=== PATIENT | male | born 1950 | race Caucasian/White ===

== ENCOUNTER 2021-07-04 15:23 | Emergency (ER) | payer MEDICARE, MEDICAID, SELFPAY ==
--- NOTE | ~2021-07-04 | CT_ITS ---
EXAMINATION: CT abdomen pelvis w con DATE: 07/04/2021 19:11 INDICATION: Bilateral flank pain. TECHNIQUE: Computed tomography (CT) of the abdomen and pelvis was performed with 100 mL Omnipaque-350 intravenous contrast. Automated exposure control and iterative reconstruction technique were employe d. The dose-length product was 733.00 mGy-cm. COMPARISON: None FINDINGS: 4 mm pleural-based nodule in the right lower lobe. 5 mm subpleural nodule at the lingula. Heart size is normal. Atherosclerotic coronary artery calcification. Aortic valve calcification. No pericardial or pleural effusion. Small sliding-type hiatal hernia. There are small thickening at the gastric antr um without surrounding inflammatory stranding. Liver, gallbladder, spleen, pancreas and bilateral adr enal glands are normal. Bilateral renal cysts measuring 4 mm on the right and 1.6 cm on the left. No evident urolithiasis or hydronephrosis. Bilateral ureters and bladder are normal. Prostatomegaly. The re are a few scattered diverticula predominantly along the sigmoid colon without adjacent from 3 mak ge to suggest diverticular colitis. Small bowel and appendix are normal. No free intraperitoneal gas or fluid. No pathologically enlarged abdominal or pelvic lymphadenopathy. Moderate thoracic spondylos is. Anterior and posterior spinal fusion at L3-L4. Chronic T12 compression fracture. IMPRESSION: 1. Possible wall thickening at the gastric antrum with differential including focal gastritis, peptic ulcer disease or artifactual appearance due to peristalsis. No other acute intra-abdominal/pelvic pr ocess. 2. Small sliding-type hiatal hernia. 3. Prostatomegaly. 4. 5 mm lingular nodule and 4 mm right lower lobe nodule. If the patient is low risk for lung cancer, no follow-up is needed. If the patient is high risk (i.e., history of smoking or asbestos or signifi cant radiation exposure), optional follow-up chest CT could be considered at 12 months. Reviewed, dictated and finalized at location A. IMPRESSION: 1. Possible wall thickening at the gastric antrum with differential including f ocal gastritis, peptic ulcer disease or artifactual appearance due to peristals is. No other acute intra-abdominal/pelvic process. 2. Small sliding-type hiatal hernia. 3. Prostatomegaly. 4. 5 mm lingular nodule and 4 mm right lower lobe nodule. If the patient is low risk for lung cancer, no follow-up is needed. If the patient is high risk (i.e ., history of smoking or asbestos or significant radiation exposure), optional follow-up chest CT could be considered at 12 months.
--- NOTE | ~2021-07-04 | XR_ITS ---
EXAMINATION: XR chest 2V DATE: 07/04/2021 16:04 INDICATION: 3 days of shortness of breath TECHNIQUE: PA and lateral views of the chest were obtained. COMPARISON: None FINDINGS: Mild linear opacities at the lingula. No pulmonary edema, pleural effusion or pneumothorax. The cardi omediastinal silhouette is normal. Moderate thoracic spondylosis. IMPRESSION: 1. Mild linear opacities at the lingula and favor atelectasis over pneumonia. Reviewed, dictated and finalized at location A.
--- NOTE | 2021-07-04 15:26 | ECG_ITS ---
Measurements Intervals Wheeler Rate: 70 P: 32 MN: 166 QRS: -18 QRSD: 103 T: 47 QT: 362 QTc: 393 Interpretive Statements SINUS RHYTHM EARLY PRECORDIAL R/S TRANSITION BASELINE ARTIFACT- III BORDERLINE ECG Electronically Signed On 07-04-2021 20:04:08 CDT by Evelio Faustin D.O.
[2021-07-04 15:36] VITALS: BP 152/86; PULSE 79; RESP 18; TEMP 36.6; O2SAT 96
[2021-07-04 15:51] LABS: Basophils Percent Auto 0.3 % (0.2-1.2); Eosinophils Absolute Auto 0.1 K/mm3 (0-0.3); Eosinophils Percent Auto 2.2 % (0-4.4); Hematocrit 39.4 % (42.0-52.0); Hemoglobin 13.1 g/dL (14.0-18.0); Immature Granulocyte Absolute 0.02 K/mm3 (0.00-0.031); Immature Granulocyte Percent A 0.3 % (0-0.5); Lymphocytes Absolute Auto 1.89 K/mm3 (0.9-3.2); Lymphocytes Percent Auto 31.8 % (18.3-44.2); Mean Corpuscular HGB Conc 33.2 g/dl (32-36); Mean Corpuscular Hemoglobin 29.8 pg (26-34); Mean Corpuscular Volume 89.7 fl (80-100); Mean Platelet Volume 9.4 fl (7.4-10.4); Monocytes Absolute Auto 0.5 K/mm3 (0.1-0.6); Monocytes Percent Auto 8.9 % (2.6-8.5); Neutrophils Absolute Auto 3.4 K/mm3 (1.3-6.7); Neutrophils Percent Auto 56.5 % (45.5-73.1); Platelet Count Result 220 k/mm3 (150-375); Red Blood Count 4.39 M/mm3 (4.6-6.20); Red Cell Distribution Width 13.1 % (11.5-14.5); White Blood Count 5.9 K/mm3 (4.5-10.0)
[2021-07-04 15:59] LABS: Anion Gap 6 mmol/L (8-16); Blood Urea Nitrogen 22 mg/dL (9-20); Calcium 8.9 mg/dL (8.4-10.2); Carbon Dioxide 24 mmol/L (22-30); Chloride 109 mmol/L (98-107); Estimated CRCL calculation 55 ml/min; Estimated Glomerular Filt Rate > 60; Glucose 142 mg/dL (65-110); Potassium 4.1 mmol/L (3.4-5.0); Sodium 139 mmol/L (137-145)
[2021-07-04 17:13] LABS: Base Excess ABG 0.1 mEq/l (+/-2.0); Fractional Inspired Oxygen 21 %; HCO3 ABG 24.3 mEq/l (22.0-26.0); Oxygen Content ABG 18.5 %vol (16.0-22.0); Oxygen Saturation ABG 95.6 % (95.0-100.0); PCO2 ABG 38.1 mmHg (35.0-45.0); PO2 ABG 76.1 mmHg (80.0-100.0); PO2 FiO2 Ratio Arterial Blood 3.62 %; pH ABG 7.423 (7.350-7.450)
[2021-07-04 17:41] VITALS: BP 150/77; PULSE 68; RESP 20; O2SAT 97
[2021-07-04 18:01] LABS: INR 0.9; Prothrombin Time 11.9 Seconds (11.1-14.7)
[2021-07-04 18:02] LABS: Partial Thromboplastin Time 24.3 SECONDS (22.3-36.8)
[2021-07-04 18:04] LABS: D Dimer 0.39 ug/mL (<0.48)
[2021-07-04 18:05] LABS: Alanine Aminotransferase 33 U/L (4-50); Alkaline Phosphatase 47 U/L (38-126); Aspartate Amino Transferase 33 U/L (17-59); Bilirubin,Total 0.4 mg/dL (0.2-1.3)
[2021-07-04 18:16] LABS: NT Pro B Type Natriuretic Pept 45 pg/mL (5-100); Troponin I < 0.012 ng/mL (0.000-0.034)
[2021-07-04 18:19] LABS: Erythrocyte Sedimentation Rate 9 mm/hr (0-20)
--- NOTE | 2021-07-04 18:20 | ED.GENADULT ---
HPI - General Adult General Chief complaint: Shortness of Breath/Dyspnea <Yadira Huizar MD - Last Filed: 07/04/21 19:10> Stated complaint: short of breath <Yadira Huizar MD - Last Filed: 07/04/21 19:10> Time Seen by Provider: 07/04/21 16:40 <Yadira Huizar MD - Last Filed: 07/04/21 19:10> Source: patient and RN notes reviewed <Yadira Huizar MD - Last Filed: 07/04/21 19:10> Mode of arrival: ambulatory <Yadira Huizar MD - Last Filed: 07/04/21 19:10> Limitations: no limitations <Yadira Huizar MD - Last Filed: 07/04/21 19:10> History of Present Illness HPI narrative: Patient is 71 years old white male drove himself to the emergency room because of pain at the flank area bilaterally radiating all the way to the chest anteriorly, dull aching, worse with any movement, better sitting up or laying down. Started 3 weeks ago. Was seen by his family physician who started him on inhaler and baclofen. Patient is telling me that his symptoms are getting worse. Patient denies any fever, chills, nausea, vomiting. Patient is fully vaccinated for COVID-19. History of hypertension, diabetes, hyperlipidemia, benign prostatic hypertrophy. Patient does not smoke or drink or uses drugs, quit smoking 2 years ago. <Yadira Huizar MD - Last Filed: 07/04/21 19:10> Related Data Allergies/adverse reactions: Allergies Allergy/AdvReac Type Severity Reaction Status Date / Time No Known Allergies Allergy Verified 07/04/21 17:41 <Yadira Huizar MD - Last Filed: 07/04/21 19:10> Review of Systems Review of Systems: CONSTITUTIONAL: Denies fever, chills, or sweats. EYES: Denies visual changes, redness, or discharge. ENT: Denies rhinorrhea, congestion, sore throat, or otalgia. CARDIOVASCULAR: Denies chest pain, palpitations, or edema. RESPIRATORY: Denies cough or dyspnea. GASTROINTESTINAL: Denies abdominal pain, nausea, vomiting, or diarrhea. GENITOURINARY: Denies dysuria or hematuria. SKIN: Denies rash or itching. MUSCULOSKELETAL: Denies back pain, joint pain, or myalgia. NEUROLOGIC: Denies headache, numbness, or weakness. PSYCHIATRIC: Denies anxiety or depression. <Yadira Huizar MD - Last Filed: 07/04/21 19:10> Exam Narrative: General appearance: Well-developed, well-nourished Skin: Normal color Head: Normocephalic, nontraumatic Eyes: Clear conjunctiva ENT: Oropharynx normal, ears normal, nose normal Neck: Supple, nontender Chest and respiratory: Airway patent, no respiratory distress, no accessory muscle use Heart: Regular rate/rhythm Abdomen: Soft, nontender, no organomegaly, quiet bowel sounds Vascular: Normal peripheral pulses, normal capillary refill. Musculoskeletal: Normal range of motion, mild diffuse tenderness of the flank area bilaterally, no bruises, no rash or swelling. Neurologic: Alert and oriented ?3, GAME AGENT is normal as tested, no gross motor deficit <Yadira Huizar MD - Last Filed: 07/04/21 19:10> Course Course Emergency Course: Stable <Yadira Huizar MD - Last Filed: 07/04/21 19:10> Vital Signs Vital signs: Vital Signs Temperature 36.6 C 07/04/21 15:36 Pulse Rate 79 07/04/21 15:36 Respiratory Rate 18 07/04/21 15:36 Blood Pressure 152/86 H 07/04/21 15:36 Pulse Oximetry 96 07/04/21 15:36 Temperature 36.6 C 07/04/21 15:36 Pulse Rate 66 07/04/21 19:21 Respiratory Rate 14 07/04/21 19:21 Blood Pressure 161/93 H 07/04/21 19:21 Pulse Oximetry 98 07/04/21 19:21 <Yadira Huizar MD - Last Filed: 07/04/21 19:10> Vital Signs Temperature 36.6 C 07/04/21 15:36 Pulse Rate 79 07/04/21 15:36 Respiratory Rate 18 07/04/21 15:36 Blood Pressure 15
[2021-07-04 18:46] VITALS: BP 110/86; PULSE 64; RESP 20; O2SAT 96
[2021-07-04 19:17] LABS: Device ROOM AIR; Modified Allen's Test Pass; Site Drawn RIGHT RADIAL
[2021-07-04 19:21] VITALS: BP 161/93; PULSE 66; RESP 14; O2SAT 98
[2021-07-04 20:16] LABS: Troponin I < 0.012 ng/mL (0.000-0.034)
[2021-07-04 20:23] VITALS: BP 164/89; PULSE 72; RESP 16; O2SAT 100
== END 2021-07-04 20:24 | disposition home or self-care (01) ==
PROVIDERS: Emergency Provider Emergency Medicine
DX: M54.9 Dorsalgia, unspecified (principal); K29.00 Acute gastritis without bleeding; I10 Essential (primary) hypertension; E11.9 Type 2 diabetes mellitus without complications; E78.5 Hyperlipidemia, unspecified; N40.0 Benign prostatic hyperplasia without lower urinary tract symptoms; Z87.891 Personal history of nicotine dependence; R06.02 Shortness of breath
CPT/HCPCS: 36415; 36600; 71046; 74177; 80048; 80076; 82805; 83880; 84484; 85025; 85380; 85610; 85652; 85730; 93005; 99284; Q9967

== ENCOUNTER → 2024-01-10 10:42 | Outpatient (CLI) | payer MEDICARE, MEDICAID, SELFPAY ==
--- NOTE | ~2024-01-10 | XR_ITS ---
Clinical Indication: Cough PA and lateral views of the chest: Comparison: 07/04/2021 Findings: The lungs are clear, without evidence of focal consolidation or pleural effusion. Cardiome diastinal silhouette is within normal limits. Bones and soft tissues are unremarkable. Impression: Normal chest. Reviewed, dictated and finalized at [facility]. CIATE DIRECTOR FINANCIAL AID Impression: Normal chest.
== END ==
PROVIDERS: PCP Emergency Medicine; Visit Provider Emergency Medicine
DX: R06.02 Shortness of breath (principal); R05.9 Cough, unspecified
CPT/HCPCS: 71046

== ENCOUNTER 2024-01-27 13:16 | Emergency (ER) | payer MEDICARE, MEDICAID, SELFPAY ==
--- NOTE | 2024-01-27 13:21 | ED.SKABFB ---
HPI - Skin/Abscess/Foreign Bdy General Chief complaint: Skin/Abscess/Foreign Body Stated complaint: top of right foot wound Time Seen by Provider: 01/27/24 13:30 Source: patient Mode of arrival: ambulatory Limitations: no limitations History of Present Illness HPI narrative: Tanya is a 73-year-old male patient presenting to the clinic today with complaints of a infected wound to the top of his right foot. He reports that he 1st noticed this wound 3 days ago. Is red with a pustular blister to the center of it. Area measures 5 x 3 cm. Right foot is swollen when compared to the left foot. Patient is diabetic. Related Data Home Medications Medication Instructions Recorded Confirmed aspirin 325 mg tablet,delayed 325 mg PO DAILY 01/27/24 01/27/24 release dutasteride 0.5 mg capsule 0.5 mg PO DAILY 01/27/24 01/27/24 ergocalciferol (vitamin D2) 1,250 1,250 mcg PO WEEKLY 01/27/24 01/27/24 mcg (50,000 unit) capsule fluticasone fur. 100 mcg-umeclid 1 inh inhalation DAILY 01/27/24 01/27/24 62.5 mcg-vilant 25 mcg inhalat.powder (Trelegy Ellipta) metformin 500 mg tablet 500 mg PO BID 01/27/24 01/27/24 metoprolol succinate 25 mg 25 mg PO DAILY 01/27/24 01/27/24 tablet,extended release 24 hr rosuvastatin 20 mg tablet 20 mg PO DAILY 01/27/24 01/27/24 tamsulosin 0.4 mg capsule 0.4 mg PO DAILY 01/27/24 01/27/24 Allergies Allergy/AdvReac Type Severity Reaction Status Date / Time No Known Allergies Allergy Verified 01/27/24 13:34 Review of Systems Review of Systems: Pertinent positives per HPI. Patient denies any fever, chills, rash, headache, visual changes, dizziness, cough, runny nose, sore throat, shortness of breath, chest pain, palpitations, nausea, vomiting, diarrhea, constipation, abdominal pain, or any urinary issues. [facility] Family History Family History Father Family history of premature coronary heart disease Patient's father is Social History Social History Smoking status: Current every day smoker Smoking end date: 11/21/14 Alcohol intake: never Comments At the time of my signature, I reviewed and agree with the nursing past medical, surgical, social, and family history. There is no relevant family history pertinent to the patient complaint. Exam Narrative: General: Well-developed, well nourished, in no apparent distress Head: Normocephalic, atraumatic. Cardio: Regular rate and rhythm, s1 and s2 normal, no murmur appreciated. Resp: Clear to auscultation bilaterally, no rhonchi, rales, wheezing or rubs. Integumentary: Hume, warm, and dry, infected blister to the top of the right foot with redness measuring 5 x 3 cm with mild induration. 1+ pitting edema to the right foot when compared to the left foot. No redness or streaking going up the ankle or leg Course Course Emergency Course: Portions of this record may have been created with voice recognition software. Level of Care: Express Care Visit Vital Signs Vital signs: Vital signs reviewed Procedures Abscess I/D foot: Date of Incision: 01/27/24 Side (if applicable): right Technique: other (Incised with an 18 gauge needle) Amount of fluid expressed (mL): 0.25 Irrigation: No Packing used?: none I&D Results: Pus and Blood MDM - Skin/Abscess/Foreign Bdy MDM Narrative Medical decision making narrative: At the time of visit patient is resting comfortably on the exam table. Patient appears to be nontoxic. Plan: Patient denies any fever or chills. Wound was cleansed with antiseptic soap and opened using an 18 gauge needle. Wound culture was obtained and sent to the lab. Will place the patient on mupirocin cream and clindamycin. Supportive measures were discussed with the patient and they voiced understanding discharge instructions and agrees
[2024-01-27 13:28] VITALS: BP 128/70; PULSE 69; RESP 16; TEMP 36.6; O2SAT 97
== END 2024-01-27 13:52 | disposition home or self-care (01) ==
PROVIDERS: Emergency Provider Nurse Practitioner Family; PCP Emergency Medicine
DX: L08.89 Other specified local infections of the skin and subcutaneous tissue (principal); B96.89 Other specified bacterial agents as the cause of diseases classified elsewhere; F17.200 Nicotine dependence, unspecified, uncomplicated; Z79.82 Long term (current) use of aspirin; Z79.84 Long term (current) use of oral hypoglycemic drugs; Z79.899 Other long term (current) drug therapy
CPT/HCPCS: 87070; 87075; 87147; 87181; 87205; 99213; G0463

== ENCOUNTER 2024-02-02 11:43 | Outpatient (CLI) | payer MEDICARE, MEDICAID, SELFPAY ==
[2024-02-02 12:05] LABS: Basophils Percent Auto 0.7 % (0.2-1.2); Eosinophils Absolute Auto 0.2 K/mm3 (0-0.3); Eosinophils Percent Auto 2.9 % (0-4.4); Hematocrit 29.4 % (42.0-52.0); Hemoglobin 8.5 g/dL (14.0-18.0); Immature Granulocyte Absolute 0.07 K/mm3 (0.00-0.031); Immature Granulocyte Percent A 1.2 % (0-0.5); Lymphocytes Absolute Auto 1.48 K/mm3 (0.9-3.2); Lymphocytes Percent Auto 25.3 % (18.3-44.2); Mean Corpuscular HGB Conc 28.9 g/dl (32-36); Mean Corpuscular Hemoglobin 20.6 pg (26-34); Mean Corpuscular Volume 71.2 fl (80-100); Mean Platelet Volume 8.6 fl (7.4-10.4); Monocytes Absolute Auto 0.5 K/mm3 (0.1-0.6); Monocytes Percent Auto 7.7 % (2.6-8.5); Neutrophils Absolute Auto 3.7 K/mm3 (1.3-6.7); Neutrophils Percent Auto 62.2 % (45.5-73.1); Platelet Count Result 422 k/mm3 (150-375); Red Blood Count 4.13 M/mm3 (4.6-6.20); Red Cell Distribution Width 17.9 % (11.5-14.5); White Blood Count 5.9 K/mm3 (4.5-10.0)
[2024-02-02 12:09] LABS: Platelet Estimate Increased (Adequate); Schistocytes None Seen
[2024-02-02 12:10] LABS: Anisocytosis 1+; Microcytosis 1+ (NORMAL); Ovalocytes 1+; Poikilocytosis 1+
[2024-02-02 16:19] LABS: Iron 50 ug/dL (49-181)
[2024-02-02 16:30] LABS: Percent Iron Saturation 11 % (20-50)
[2024-02-02 16:56] LABS: Ferritin 8.62 ng/mL (11.1-264)
[2024-02-02 17:53] LABS: Alanine Aminotransferase 22 U/L (6-50); Albumin Level 4.1 g/dL (3.5-5.1); Alkaline Phosphatase 55 U/L (38-126); Anion Gap 10 mmol/L (8-16); Aspartate Amino Transferase 26 U/L (17-59); Bilirubin,Total 0.3 mg/dL (0.2-1.3); Blood Urea Nitrogen 26 mg/dL (9-20); Carbon Dioxide 18 mmol/L (22-30); Chloride 111 mmol/L (98-107); Estimated Glomerular Filt Rate 54; Glucose 138 mg/dL (65-110); Lactate Dehydrogenase 200 U/L (120-246); Potassium 4.5 mmol/L (3.4-5.0); Sodium 139 mmol/L (137-145)
[2024-02-02 18:59] LABS: Folic Acid 8.7 ng/mL (2.76->20)
[2024-02-06 07:46] LABS: Methylmalonic Acid 97 nmol/L (87-318)
[2024-02-11 10:56] LABS: Soluble Transferrin Receptor 5.26 mg/L (0.76-1.76)
== END 2024-02-02 11:44 | disposition home or self-care (01) ==
LOC: ANHLAB 11:46
PROVIDERS: Nurse Practitioner Family; PCP Emergency Medicine; Visit Provider Internal Medicine Hematology & Oncology
DX: D50.9 Iron deficiency anemia, unspecified (principal)
CPT/HCPCS: 36415; 80053; 82607; 82728; 82746; 83540; 83550; 83615; 83921; 84238; 85025

== ENCOUNTER 2024-05-16 08:18 | Outpatient (CLI) | payer MEDICARE, MEDICAID, SELFPAY ==
[2024-05-16 08:43] LABS: Basophils Percent Auto 0.5 % (0.2-1.2); Eosinophils Absolute Auto 0.2 K/mm3 (0-0.3); Eosinophils Percent Auto 3.6 % (0-4.4); Hematocrit 41.4 % (42.0-52.0); Hemoglobin 14.1 g/dL (14.0-18.0); Immature Granulocyte Absolute 0.02 K/mm3 (0.00-0.031); Immature Granulocyte Percent A 0.4 % (0-0.5); Lymphocytes Absolute Auto 1.35 K/mm3 (0.9-3.2); Lymphocytes Percent Auto 24.3 % (18.3-44.2); Mean Corpuscular HGB Conc 34.1 g/dl (32-36); Monocytes Absolute Auto 0.6 K/mm3 (0.1-0.6); Monocytes Percent Auto 11.4 % (2.6-8.5); Neutrophils Absolute Auto 3.3 K/mm3 (1.3-6.7); Neutrophils Percent Auto 59.8 % (45.5-73.1); Platelet Count Result 189 k/mm3 (150-375); Red Blood Count 4.87 M/mm3 (4.6-6.20); Red Cell Distribution Width 14.6 % (11.5-14.5); White Blood Count 5.6 K/mm3 (4.5-10.0)
[2024-05-16 13:14] LABS: Iron 81 ug/dL (49-181)
[2024-05-16 13:15] LABS: Alanine Aminotransferase 26 U/L (6-50); Alkaline Phosphatase 51 U/L (38-126); Anion Gap 6 mmol/L (4-12); Aspartate Amino Transferase 23 U/L (17-59); Bilirubin,Total 0.5 mg/dL (0.2-1.3); Blood Urea Nitrogen 31 mg/dL (9-20); Calcium 8.7 mg/dL (8.4-10.2); Carbon Dioxide 27 mmol/L (22-30); Chloride 105 mmol/L (98-107); Estimated Glomerular Filt Rate 59; Glucose 138 mg/dL (65-110); Potassium 4.3 mmol/L (3.4-5.0); Sodium 138 mmol/L (137-145)
[2024-05-16 13:23] LABS: Percent Iron Saturation 22 % (20-50)
[2024-05-16 14:21] LABS: Folic Acid 6.9 ng/mL (2.76->20)
== END 2024-05-16 08:19 | disposition home or self-care (01) ==
LOC: ANHLAB 08:21
PROVIDERS: Nurse Practitioner Family; PCP Emergency Medicine; Visit Provider Internal Medicine Hematology & Oncology
DX: D50.9 Iron deficiency anemia, unspecified (principal)
CPT/HCPCS: 36415; 80053; 82607; 82728; 82746; 83540; 83550; 85025

== ENCOUNTER 2025-01-03 14:48 | Emergency (ER) | payer MEDICARE, MEDICAID, SELFPAY ==
--- NOTE | ~2025-01-03 | US_ITS ---
EXAMINATION: US venous doppler LE RT DATE: 01/03/2025 15:29 INDICATION: Right lower limb pain. TECHNIQUE: Grayscale ultrasound images without and with compression and Doppler ultrasound images of the right lower extremity veins were obtained. COMPARISON: None. FINDINGS: The visualized portions of right common femoral vein, profunda (deep) femoral vein, femoral vein, pop liteal vein, peroneal veins, posterior tibial veins, and greater saphenous vein outflow are patent. IMPRESSION: 1. No deep venous thrombosis. Reviewed, dictated and finalized at location A. SPRINKLER INSPECTOR
--- OUTSIDE RECORDS SUMMARY | 2025-01-03 14:51 | XMS_ITS | Referral Summary ---
Author Organization [facility] Address [address] [place] [address] Care Team Providers Care Print Project Manager Name Role Phone Unavailable Primary Care Provider Unavailabl e Source Comments [facility],non-owned Affiliates and Associated Physician Practices is amultiple site organization consisting of ambulatory clinics and hospital sitesin [place], [place], [place] and [place]. This disclosure is being madepursuant to the Care Everywhere program and may not contain all information available regarding this patient. Last updated 18.[facility] Encounters Date Type Department Care Team Description 11/19/2024 11:30 AM HIGH FREQUENCY MILL OPERATOR Office Visit [facility] - Urology [address] [place] [address] [address] [place] [address] Stefania Abdul, POST FORM REMOVER-RATE ENGINEER Nocturia (Primary Dx); Benign prostatic hyperplasia with incomplete bladder emptying; Urinary frequency from Last 3 Months Allergies No known active allergies Medications * Be aware that medications may not be up to date on this document. Alwaysverify current medications with the patient. Medication Sig Dispensed Refills Start Date End Date Status metFORMIN (Glucophage) 500 MG tablet Take 1 (one) tablet by mouth 2 times daily Active tamsulosin (Flomax) 0.4 MG capsule Take 1 (one) capsule by mouth once daily Active dutasteride (Avodart) 0.5 MG capsule Take 1 (one) capsule by mouth once daily Active rosuvastatin (Crestor) 20 MG tablet Take 1 (one) tablet by mouth once daily Active metoprolol succinate XL 24hr (Toprol XL) 100 MG tablet Take 1 (one) tablet by mouth once daily Active aspirin EC (Ecotrin) 325 MG tablet Take 1 (one) tablet by mouth once daily Active baclofen (Lioresal) 20 MG tablet Take 1 (one) tablet by mouth 2 times daily Active omeprazole (PriLOSEC) 40 MG capsule Take 1 (one) capsule by mouth once daily Active solifenacin (Vesicare) 5 MG tablet Take 1 (one) tablet by mouth once daily 90 tablet 4 11/19/2024 Active Social History Tobacco Use Types Packs/Day Years Used Date Smoking Tobacco: Never Smokeless Tobacco: Never Tobacco Cessation:Counseling Given: Not Answered Alcohol Use Standard Drinks/Week Comments Never 0 (1 standard drink = 0.6 oz pur e alcohol) Sex and Gender Information Value Date Recorded Sex Assigned at Not on file Gender Identity Not on file Sexual Orientation Not on file Last Filed Vital Signs Vital Sign Reading Time Taken Comments Blood Pressure 137/74 11/19/2024 11:13 AM HIGH FREQUENCY MILL OPERATOR Pulse 69 11/19/2024 11:13 AM HIGH FREQUENCY MILL OPERATOR Temperature 36.8 C (98.2 F) 11/19/2024 11:13 AM HIGH FREQUENCY MILL OPERATOR Respiratory Rate 16 08/13/2024 2:59 PM CDT Oxygen Saturation 97% 11/19/2024 11: 13 AM HIGH FREQUENCY MILL OPERATOR Inhaled Oxygen Concentration - - Weight 88.8 kg (195 lb 12.8 oz) 024 11:13 AM HIGH FREQUENCY MILL OPERATOR Height 167.6 cm (5' 6 ) 11/19/2024 11:1 3 AM HIGH FREQUENCY MILL OPERATOR Body Mass Index 31.6 11/19/2024 11:13 AM HIGH FREQUENCY MILL OPERATOR Plan of Treatment Upcoming Encounters Date Type Department Care Team (Late st Contact Info) Description 02/18/2025 10:30 AM CDT Office Visit [facility] - Urology [address] [place] [address] [address] [place] [address] Stefania Abdul T, POST FORM REMOVER-RATE ENGINEER [address] [facility] DE[place] [address]
--- OUTSIDE RECORDS SUMMARY | 2025-01-03 14:51 | XMS_ITS | Referral Summary ---
Author Organization [facility] Address [address] [place] [address] Care Team Providers Care Adjuster Arbitrator Name Role Phone Eusebio Crystal MD Primary Care Provider [phone] Encounters Date Type Department Care Team Description 12/19/2024 9:15 AM PAPER PRODUCTS SUPERVISOR Office Visit [facility] Pulmonary [address] [place] [phone] Jd Ariza MD PERRY (obstructive sleep apnea) (Primary Dx); Psychophysiological insomnia; Simple chronic bronchitis (HCC); Cigarette nicotine dependence in remission; Multiple pulmonary nodules; BMI 31.0-31.9,adult; Periodic limb movement 11/16/2024 [address]phone [facility] [address] [place] [address] Jd Ariza MD Cpap titration results 11/11/2024 7:49 PM PAPER PRODUCTS SUPERVISOR - 11/11/2024 11:59 PM PAPER PRODUCTS SUPERVISOR Hospital Encounter [facility] [address] [place] [address] Other fatigue; PERRY (obstructive sleep apnea); Psychophysiological insomnia; Wheezing; Simple chronic bronchitis (HCC); BMI 31.0-31.9,adult; Cigarette nicotine dependence in remission Discharge Disposition: Discharge to home or self care 11/05/2024 9:15 AM PAPER PRODUCTS SUPERVISOR - 11/05/2024 11:59 PM PAPER PRODUCTS SUPERVISOR [facility] [place] [address] [place] [address] Personal history of nicotine dependence Discharge Disposition: Discharge to home or self care from Last 3 Months Allergies No known active allergies Medications tamsulosin (FLOMAX) 0.4 mg extended release capsule Take by mouth daily Active cyanocobalamin (Vitamin B-12) 1,000 mcg tablet Take 1 tablet (1,000 mcg total) by mouth daily Active rosuvastatin (CRESTOR) 20 mg tablet Take 1 tablet (20 mg total) by mouth daily Active ferrous sulfate 325 mg (65 mg of elemental iron) tablet Take 1 tablet (325 mg total) by mouth daily Active baclofen (LIORESAL) 20 mg tablet Take 1 tablet (20 mg total) by mouth 2 (two) times a day Active aspirin 325 mg enteric coated tablet Take 1 tablet (325 mg total) by mouth daily Active metFORMIN (GLUCOPHAGE) 500 mg tablet Take 1 tablet (500 mg total) by mouth Active metoprolol XL (TOPROL-XL) 25 mg extended release tablet Take 1 tablet (25 mg total) by mouth daily Active albuterol HFA (Ventolin HFA) 90 mcg/actuation inhaler Inhale 2 puffs every 6 (six) hours as needed for wheezing 1 each 3 09/12/2024 Active Active Problems Problem Noted Date Diagnosed Date Multiple pulmonary nodules 12/19/2024 Periodic limb movement 12/19/2024 PERRY (obstructive sleep apnea) 09/12/2024 Psychophysiological insomnia 09/12/2024 Wheezing 09/12/2024 BMI 31.0-31.9,adult 09/12/2024 Simple chronic bronchitis 09/12/2024 Cigarette nicotine dependence in remission 09/12 Social History Tobacco Use Types Packs/Day Years Used Date Smoking Tobacco: Former Cigarettes 0.8 46.1 S tarted: 2013 Sex and Gender Information Value Date Recorded Sex Assigned at Not on file Legal Sex Male 11:51 AM CDT Gender Identity Not on file Sexual Orientation Not on file Last Filed Vital Signs Vital Sign Reading Time Taken Comments Blood Pressure 122/62 12/19/2024 10:18 AM PAPER PRODUCTS SUPERVISOR Pulse 72 12/19/2024 10:18 AM PAPER PRODUCTS SUPERVISOR Temperature 36.9 C (98.4 F) 12/19/2024 10:18 AM PAPER PRODUCTS SUPERVISOR Respiratory Rate 18 12/19/2024 10:18 AM PAPER PRODUCTS SUPERVISOR Oxygen Saturation 96% 12/19/2024 10:18 AM PAPER PRODUCTS SUPERVISOR Inhaled Oxygen Concentration - - Weight 88 kg (194 lb) 12/19/2024 10:18 AM PAPER PRODUCTS SUPERVISOR Height 167.6 cm (5' 6 ) 12/19/2024 10:18 AM PAPER PRODUCTS SUPERVISOR Body Mass Index 31.31 12/19/2024 10:18 AM PAPER PRODUCTS SUPERVISOR Plan of Treatment Not on file Procedures Procedure Name Priority Date/Time Associated Diagnosis Comments PSG (SIMPLE) Routine 11/11/2024 7:49 PM PAPER PRODUCTS SUPERVISOR Other fatigue PERRY (obstructive sleep apnea) Psychophysiologica l insomnia Wheezing Simple chronic bronchitis (HCC) BMI 31.0-31.9,adult Cigarette nicotine dependence in remission CT LUNG CANCER SCREENING Schedule Routine, Read Routine (OP Routine) 11/05/2024 9:38 AM PAPER PRODUCTS SUPERVISOR Personal history of nicotine dependence from Last 3 Months Results * PSG (11/11/2024 7:49 PM PAPER PRODUCTS SUPERVISOR) Jd Ariza MD SLEEP CENTER ORDERABLES Fin al Result [facility] [address] [place] [address] * CT Lung Cancer Screening (11/05/2024 9:38 AM PAPER PRODUCTS SUPERVISOR) Anatomical Region Laterality Modality Chest N/A Computed Tomogra phy 11/09/2024 10:4 6 AM PAPER PRODUCTS SUPERVISOR Narrative 11/09/2024 10:54 AM PAPER PRODUCTS SUPERVISOR EXAM DESCRIPTION: CT LUNG CANCER SCREENING REASON FOR STUDY: Screening CT of the chest in a former smoker with a 35 pack year smoking history. Additional history: None. TECHNIQUE: Low dose CT scan of the chest was performed without intravenous contrast using helical scanning technique. The exam extends from the lung apices through the lung bases. Automatic exposure control was used as a dose optimization technique. NOTE: This study was performed for the specific purposes of lung cancer screening and is not an alternative to diagnostic chest CT. RADIATION DOSE: CT dose index volume (CTDIvol) = 2.67 mGy COMPARISON: None FINDINGS: SMOKING RELATED LUNG DISEASE: Mild emphysema LUNG NODULES: 6 mm central right upper lobe ground-glass nodule (136). A 5 mm mean diameter linear nodule along the minor fissure, likely represents a lymph node (151). 6 mm pleural lateral right lower lobe nodule (211). A 6 mm nodule within the lingula likely represents a calcified granuloma (217). 5 mm pleural left lower lobe nodule (270). Possible 5 mm central left lower lobe nodule (212) OTHER: No pleural effusion or pneumothorax. No mediastinal or hilar lymphadenopathy. The heart is normal in size. Small pericardial effusion is seen. Moderate coronary calcification is present. Aorta is nonaneurysmal. No axillary lymphadenopathy. Bilateral gynecomastia is present. Images of the upper abdomen demonstrate a small hiatal hernia. Bone windows demonstrate no suspicious lytic or sclerotic lesion. Age-indeterminate wedging of the superior endplate of T12. IMPRESSION: 1. Pulmonary nodules measuring up to 6 mm. Lung-RADS category 3: Probably benign. Recommendation: Low dose CT of chest in 6 months. THIS IS AN ELECTRONICALLY VERIFIED FINAL REPORT 11/09/2024 10:54 AM - Electronically signed by Zhen Rojo M.D. AG T: Report ID: [id number] Reading Location: [place] [address] Procedure Note Zhen Rojo MD - 11/09/2024 EXAM DESCRIPTION: CT LUNG CANCER SCREENING REASON FOR STUDY: Screening CT of the chest in a former smoker with a35 pack year smoking history. Additional history: None. TECHNIQUE: Low dose CT scan of the chest was performed without intravenous contrast using helical scanning technique. The exam extends from the lung apices through the lung bases. Automatic exposure control was used as adose optimization technique. NOTE: This study was performed for the specific purposes of lung cancer screening and is not an alternative to diagnostic chest CT. RADIATION DOSE: CT dose index volume (CTDIvol) = 2.67 mGy COMPARISON: None FINDINGS: SMOKING RELATED LUNG DISEASE: Mild emphysema LUNG NODULES: 6 mm central right upper lobe ground-glass nodule (136).A 5 mm mean diameter linear nodule along the minor fissure, likely representsa lymph node (151). 6 mm pleural lateral right lower lobe nodule (211). A6 mm nodule within the lingula likely represents a calcified granuloma (217).5 mm pleural left lower lobe nodule (270). Possible 5 mm central left lowerlobe nodule (212) OTHER: No pleural effusion or pneumothorax. No mediastinal or hilar lymphadenopathy. The heart is normal in size. Small pericardial effusionis seen. Moderate coronary calcification is present. Aorta isnonaneurysmal. No axillary lymphadenopathy. Bilateral gynecomastia is present. Imagesof the upper abdomen demonstrate a small hiatal hernia. Bone windowsdemonstrate no suspicious lytic or sclerotic lesion. Age-indeterminate wedging of the superior endplate of T12. IMPRESSION: 1. Pulmonary nodules measuring up to 6 mm. Lung-RADS category 3: Probably benign. Recommendation: Low dose CT of chest in 6 months. THIS IS AN ELECTRONICALLY VERIFIED FINAL REPORT 11/09/2024 10:54 AM - Electronically signed by Zhen Rojo M.D. AG T: Report ID: [id number] Reading Location: [place] [address] Jd Ariza MD IMG CT PROCEDURES Final Res ult from Last 3 Months Insurance MEDICARE [employer] Care Teams Adjuster Arbitrator Relationship Specialty Start Date End Date Eusebio Crystal MD [facility] [address] [address] PCP - General Emergency Medicine 09/05/24
--- OUTSIDE RECORDS SUMMARY | 2025-01-03 14:51 | XMS_ITS | Clinical Summary ---
Author Organization [facility] Tawnya osuna [facility] Address [address] [place] [address] Care Team Providers Care Youth Care Specialist Name Role Phone Eusebio Crystal MD Primary Care Provider [phone] Allergies No known active allergies Medications aspirin (ECOTRIN EC) 325 mg Tablet, Delayed Release (E.C.) Take 325 mg by mouth daily. Active metFORMIN (GLUCOPHAGE) 500 mg tablet Take 500 mg by mouth 2 times daily with meals. Active metoprolol succinate (TOPROL XL) 25 mg Extended Release 24 hour tablet Take 100 mg by mouth daily. Active tamsulosin (FLOMAX) 0.4 mg capsule Take 0.4 mg by mouth daily. Active rosuvastatin (CRESTOR) 20 mg tablet Take 20 mg by mouth daily. Active omega-3 fatty acids-fish oil 300-1,000 mg Capsule Take 1 Capsule by mouth daily. Active dutasteride (AVODART) 0.5 mg Capsule Take 0.5 mg by mouth daily. Active baclofen (LIORESAL) 20 mg tablet Take 20 mg by mouth 2 times daily. Active clindamycin HCL (CLEOCIN) 300 mg Capsule Take 300 mg by mouth 4 times daily. Active cephALEXin (KEFLEX) 500 mg capsule Take 500 mg by mouth 4 times daily. Active CALCIUM CARBONATE-VITAM IN D3 ORAL Take by mouth. Active ferrous sulfate 325 mg (65 mg iron) tablet Take 1 Tablet (325 mg) by mouth daily. 90 Tablet 4 05/17/2024 Active cyanocobalamin 1,000 mcg Tablet Take 1 Tablet (1,000 mcg) by mouth daily. 90 Tablet 4 05/17/2024 Active Active Problems Problem Noted Date Diagnosed Date Iron deficiency anemia 02/02/2024 Encounters Date Type Department Care Team Description 12/13/2024 External Device Data ST[facility] ABSTRACTION Provider, Abstract 12/12/2024 External Device Data [facility] ABSTRACTION Provider, Abstract 12/11/2024 External Device Data [facility] ABSTRACTION Provider, Abstract 12/04/2024 External Device Data ST[facility] ABSTRACTION Provider, Abstract from Last 3 Months Family History Medical History Relation Name Comments No Known Problems Brother No Known Problems Child No Known Problems Father No Known Problems Mother No Known Problems Sister Relation Name Status Comments Brother Alive Child Alive Father Mother Sister Alive Social History Tobacco Use Types Packs/Day Years Used Date Smoking Tobacco: Former Cigarettes 1 35 Q uit: 02/01/2015 Smokeless Tobacco: Never Tobacco Cessation:Counseling Given: Not Answered Alcohol Use Standard Drinks/Week Comments Not Currently 0 (1 standard drink = 0.6 oz pur e alcohol) Sex and Gender Information Value Date Recorded Sex Assigned at Not on file 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 Gender Identity Not on file Sexual Orientation Not on file Last Filed Vital Signs Vital Sign Reading Time Taken Comments Blood Pressure 142/85 09/19/2024 8:41 AM CDT Pulse 70 09/19/2024 8:39 AM CDT Temperature 36.4 C (97.5 F) 09/19/2024 8:39 AM CDT Respiratory Rate 16 09/19/2024 8:39 AM CDT Oxygen Saturation 95% 09/19/2024 8:39 AM CDT Inhaled Oxygen Concentration - - Weight 88.1 kg (194 lb 3.2 oz) 09/19/2024 8:39 A M CDT Height 167.6 cm (5' 6 ) 02/02/2024 11:00 AM CDT Body Mass Index 31.34 02/02/2024 11:00 AM CDT Plan of Treatment Upcoming Encounters Date Type Department Care Team (Late st Contact Info) Description 04/18/2025 11:15 AM CDT Office Visit [facility] Oncology and Hematology - [address] [place] [address] Mendez Amezcua MD [address] [facility] [facility] [address] [place] [address] Health Maintenance Due Date Last Done Comments DIABETES ANNUAL FOOT EXAM 1968 DIABETES ANNUAL RETINAL EXAM 1968 DIABETES HBA1C Q 6 MONTHS 1968 DIABETES MICROALBUMIN ANNUAL SCREEN 1968 LDL CHOLESTEROL ANNUAL 1968 DTAP/TDAP/TD VACCINES (1 - Tdap) 1969 PNEUMOCOCCAL VACCINE 65+ YEARS (1 of 2 - PCV) 06/01/19 69 COLORECTAL SCREENING 1995 Colorectal Cancer Screening 1995 FIT-DNA Q 3 years 1995 FIT/FOBT Q 1 year 1995 Flex Sig/CT Colonography Q 5 years 1995 ZOSTER VACCINE (1 of 2) 2000 Abdominal Aortic Aneurysm (AAA) Screening 2015 INFLUENZA VACCINE (#1) 2024 [place] Prev entative Visit/Annual Wellness Visit 11/21/2024 RSV VACCINE (60+ or ) (1 - 1-dose 75+ series) 2025 Insurance [facility] [id number] MEDICAID [place] Care Teams Youth Care Specialist Relationship Specialty Start Date End Date Eusebio Crystal MD [address] [place] [phone] PCP - General Family Practice 02/02/24
--- OUTSIDE RECORDS SUMMARY | 2025-01-03 14:51 | XMS_ITS | Clinical Summary ---
Author Organization [facility] Address [address] [facility] [place] [address] Care Team Providers Care Tailercpa Name Role Phone Unavailable Primary Care Provider Unavailabl e Source Comments [facility],non-owned Affiliates and Associated Physician Practices is amultiple site organization consisting of ambulatory clinics and hospital sitesin [place], [place], [place] and [place]. This disclosure is being madepursuant to the Care Everywhere program and may not contain all information available regarding this patient. Last updated 18.[facility] Allergies No known active allergies Medications * [...] once daily 90 tablet 4 11/19/2024 Active Encounters Date Type Department Care Team Description 11/19/2024 11:30 AM C.O.D. CLERK Office Visit [facility] - Urology [address] [place] [address] Stefania Abdul, EWA Nocturia (Primary Dx); Benign prostatic hyperplasia with incomplete bladder emptying; Urinary frequency from Last 3 Months Social History Tobacco Use Types Packs/Day Years [...] Comments Blood Pressure 137/74 11/19/2024 11:13 AM C.O.D. CLERK Pulse 69 11/19/2024 11:13 AM C.O.D. CLERK Temperature 36.8 C (98.2 F) 11/19/2024 11:13 AM C.O.D. CLERK Respiratory Rate 16 08/13/2024 2:59 PM CDT Oxygen Saturation 97% 11/19/2024 11: 13 AM C.O.D. CLERK Inhaled Oxygen Concentration - - Weight 88.8 kg (195 lb 12.8 oz) 024 11:13 AM C.O.D. CLERK Height 167.6 cm (5' 6 ) 11/19/2024 11:1 3 AM C.O.D. CLERK Body Mass Index 31.6 11/19/2024 11:13 AM C.O.D. CLERK Plan of Treatment Upcoming Encounters Date Type Department Care Team (Late st Contact Info) Description 02/18/2025 10:30 AM CDT Office Visit [facility] - Urology [address] [place] [address] [address] [place] [address] Stefania Abdul, EWA [address] [facility] DE[facility] [place] [address] Health Maintenance Due Date Last Done Comments COLOGUARD (AGES 45-75) - COL ON CA SCREENING 1950 COLON MONITORING 1950 COLONOSCOPY - COLON CA SCREENING 1950 CT COLONOGRAPHY - COLON CA SCREENING 1950 Colorectal Cancer Screening 1950 FIT - COLON CA SCREENING 1950 FLEX SIG - COLON CA SCREENING 1950 HEPATITIS C SCREENING 05/27/1968 DTAP/TDAP/TD VACCINES (1 - Tdap) 1969 PNEUMOCOCCAL VACCINE 50+ (1 of 1 - PCV) 2000 ZOSTER VACCINE (1 of 2) 2000 COVID-19 VACCINE (1 - 2023-2 5 season) 2024 INFLUENZA VACCINE (#1) 2024 DEPRESSION SCREENING 11/21/2024 MEDICARE AWV CALENDAR YEAR 2024 Respiratory Syncytial Virus (RSV) Vaccine Pt: or over 60 yrs (1 - 1-dose 75+ series) 2025 HEPATITIS B VACCINE Aged Out No longe r eligible based on patient's age to complete this topic HIB VACCINE Aged Out No longer eligi ble based on patient's age to complete this topic HPV VACCINE Aged Out No longer eligi ble based on patient's age to complete this topic MENINGOCOCCAL (Group B) VACCINE Aged Out No longer eligible based on patient's age to complete this topic MENINGOCOCCAL VACCINE Aged Out No ebenezer jame eligible based on patient's age to [place] [address]
--- OUTSIDE RECORDS SUMMARY | 2025-01-03 14:51 | XMS_ITS | Clinical Summary ---
Author Organization [facility] Address [address] [place] [address] Care Team Providers Care Equipment Maintenance Superintendent Name Role Phone Eusebio Crystal MD Primary Care Provider [phone] Allergies No known active allergies Medications tamsulosin [...] 09/12/2024 Cigarette nicotine dependence in remission 09/12 Encounters Date Type Department Care Team Description 12/19/2024 9:15 AM HISTORIC SITES SUPERVISOR Office Visit [facility] Pulmonary [address] [place] [phone] Jd Ariza MD PERRY (obstructive sleep apnea) (Primary Dx); Psychophysiological insomnia; Simple chronic bronchitis (HCC); Cigarette nicotine dependence in remission; Multiple pulmonary nodules; BMI 31.0-31.9,adult; Periodic limb movement 11/16/2024 Telephone [facility] [address] [place], [place] [phone] Jd Ariza MD Cpap titration results 11/11/2024 7:49 PM HISTORIC SITES SUPERVISOR - 11/11/2024 11:59 PM HISTORIC SITES SUPERVISOR Hospital Encounter [facility] [address] [place], [place] [phone] Other fatigue; PERRY (obstructive sleep apnea); Psychophysiological insomnia; Wheezing; Simple chronic bronchitis (HCC); BMI 31.0-31.9,adult; Cigarette nicotine dependence in remission Discharge Disposition: Discharge to home or self care 11/05/2024 9:15 AM HISTORIC SITES SUPERVISOR - 11/05/2024 11:59 PM HISTORIC SITES SUPERVISOR Hospital [facility] [place] [address] [place] [address] Personal history of nicotine dependence Discharge Disposition: Discharge to home or self care from Last 3 Months Social History Tobacco Use Types Packs/Day Years Used Date Smoking Tobacco: Former Cigarettes 0.8 46.1 S tarted: 2013 Sex and Gender Information Value Date Recorded Sex Assigned at Not on file Legal Sex Male 11:51 AM CDT Gender Identity Not on file Sexual Orientation Not on file Obstetrics History Last Filed Vital Signs Vital Sign Reading Time Taken Comments Blood Pressure 122/62 12/19/2024 10:18 AM HISTORIC SITES SUPERVISOR Pulse 72 12/19/2024 10:18 AM HISTORIC SITES SUPERVISOR Temperature 36.9 C (98.4 F) 12/19/2024 10:18 AM HISTORIC SITES SUPERVISOR Respiratory Rate 18 12/19/2024 10:18 AM HISTORIC SITES SUPERVISOR Oxygen Saturation 96% 12/19/2024 10:18 AM HISTORIC SITES SUPERVISOR Inhaled Oxygen Concentration - - Weight 88 kg (194 lb) 12/19/2024 10:18 AM HISTORIC SITES SUPERVISOR Height 167.6 cm (5' 6 ) 12/19/2024 10:18 AM HISTORIC SITES SUPERVISOR Body Mass Index 31.31 12/19/2024 10:18 AM HISTORIC SITES SUPERVISOR Plan of Treatment Health Maintenance Due Date Last Done Comments Colon Cancer Screening-Colonoscopy 1950 Depression Screening 1950 Fall Risk Assessment 1950 Hepatitis C Screening 1950 DTaP/Tdap/Td Vaccine (1 - Tdap) 1961 Hepatitis B Screening 1968 Zoster Vaccine (1 of 2) 2000 Abdominal Aortic Aneurysm (AAA) Screen 2015 Pneumococcal vaccine 65+ (1 of 1 - PCV) 2015 Well Visit 65+ 2015 Influenza Vaccine (#1) 2024 Procedures Procedure Name Priority Date/Time Associated Diagnosis Comments PSG (SIMPLE) Routine 11/11/2024 7:49 PM HISTORIC SITES SUPERVISOR Other fatigue PERRY (obstructive sleep apnea) Psychophysiologica l insomnia Wheezing Simple chronic bronchitis (HCC) BMI 31.0-31.9,adult Cigarette nicotine dependence in remission CT LUNG CANCER SCREENING Schedule Routine, Read Routine (OP Routine) 11/05/2024 9:38 AM HISTORIC SITES SUPERVISOR Personal history of nicotine dependence from Last 3 Months Results * PSG (11/11/2024 7:49 PM HISTORIC SITES SUPERVISOR) us Jd Ariza MD SLEEP CENTER ORDERABLES Fin al Result [facility] [address] [place] [id number], [facility] * CT Lung Cancer Screening (11/05/2024 9:38 AM HISTORIC SITES SUPERVISOR) Anatomical Region Laterality Modality Chest N/A Computed Tomogra phy 11/09/2024 10:4 6 AM HISTORIC SITES SUPERVISOR Narrative 11/09/2024 10:54 AM HISTORIC SITES SUPERVISOR EXAM DESCRIPTION: CT LUNG CANCER SCREENING [...] - Electronically signed by Zhen Rojo M.D. T: Report ID: [id number] Reading Location: [place] [address] Procedure Note Zhen Rojo MD - 11/09/2024 [...] Zhen Rojo M.D. AG T: Report ID: [id number] Reading Location: [place] [address] Jd Ariza MD IM CT PROCEDURES Final Res ult from Last 3 Months Insurance MEDICARE SOLUTIONS Care Teams Equipment Maintenance Superintendent Relationship Specialty Start Date End Date Eusebio Crystal MD [address] [place] [id number] PCP - General Emergency Medicine 09/05/24
--- OUTSIDE RECORDS SUMMARY | 2025-01-03 14:51 | XMS_ITS | Data Portability ---
Author Organization [facility], [facility] IP Address [address] [place] [address] Assessment No assessment recorded. Plan of Treatment Reminders Order Date Submit Date Provider Last Modified By Organization Details Last Modified Time Details Appointments None recorded. Lab None recorded. Referral audiologis t referral 2023 024 ISMAEL Arora [facility], [address] [place], [address], 4 11:26:59 Procedures None recorded. Surgeries None recorded. Imaging None recorded. Medication Orders None recorded. Patient TargetsNo targets recorded. Patient InstructionsNo instructions recorded. Reason for Referral Sanitation Supervisor Referral for Sen sorineural hearing loss of bilateral ears Referring Physician: Francisco Hernandez Otolaryngology, Encounter Date: 12/20/2023 Procedures Surgical History Date Name Laterality Status Provider Name and Address Organization Details Recorded Time Cerumen removal without microscope completed Paul Veloz MA [facility] 12/20/2023 10:32:53 Imaging Results None recorded. Procedure Notes None recorded. Medical Equipment None Reported. Allergies No known drug allergies Medications Name Sig Start Date Stop Date Status Note LastModified by Organization Details LastModified Time metformin 500 mg tablet TAKE 1 TABLET BY MOUTH TWICE A DAY active Not Available Not Available No t Available hydrocodone 5 mg-acetaminop hen 325 mg tablet TAKE 1 TABLET BY MOUTH EVERY 6 HOURS NEEDED FOR SEVERE PAIN active Not Available Not Available No t Available metoprolol succinate ER 100 mg tablet,extend ed release 24 hr TAKE 1 TABLET BY MOUTH EVERY DAY active Not Available Not Available No t Available omeprazole 40 mg capsule,delay ed release TAKE 1 CAPSULE BY MOUTH EVERY DAY active Not Available Not Available No t Available baclofen 20 mg tablet TAKE 1 TABLET BY MOUTH TWICE A DAY active Not Available Not Available No t Available aspirin 325 mg tablet,delaye d release TAKE 1 TABLET BY MOUTH EVERY DAY active Not Available Not Available No t Available tamsulosin 0.4 mg capsule TAKE 1 CAPSULE BY MOUTH EVERY DAY active Not Available Not Available No t Available erythromycin 5 mg/gram (0.5 %) eye ointment active Not Available Not Available Not Available betamethasone dipropionate 0.05 % topical cream APPLY TOPICALLY TWICE DAILY active Not Available Not Available No t Available metoprolol succinate ER 25 mg tablet,extend ed release 24 hr TAKE 1 TABLET BY MOUTH EVERY DAY active Not Available Not Available No t Available methylprednis olone 4 mg tablets in a dose pack TAKE 6 TABLETS ON DAY 1 DIRECTED ON PACKAGE AND DECREASE BY 1 TAB EACH DAY FOR A TOTAL OF 6 DAYS active Not Available Not Available No t Available amoxicillin 875 mg-potassium clavulanate 125 mg tablet TAKE 1 TABLET BY MOUTH TWICE A DAY active Not Available Not Available No t Available dutasteride 0.5 mg capsule TAKE 1 CAPSULE BY MOUTH EVERY DAY active Not Available Not Available No t Available rosuvastatin 20 mg tablet TAKE 1 TABLET BY MOUTH EVERY DAY active Not Available Not Available No t Available Trelegy Ellipta 100 mcg-62.5 mcg-25 mcg powder for inhalation INHALE 1 PUFF BY MOUTH EVERY DAY active Not Available Not Available No t Available Vitals Date Recorded Body weight Body mass index (BMI) Body height Body temperature Heart rate Systolic blood pressure Diastolic blood pressure Provider Name and Address Organization Details Last Updated DateTime 4 14407.8 5 g 31.9 kg/m2 167.64 cm 98.6 [degF] 64 /min 142 mm[Hg] 67 mm[Hg] Paul Veloz MA [place] - [facility] 4 10:34:52 Social History Question Answer Notes LastModified by Organizat ion Details LastModified Time Do You Have An Advance Directive? No Information not available 12/20/2023 What Was The Date Of Your Most Recent Tobacco Screening? 12/20/2023 Information not available 12/20/2023 Sex: Unknown Functional Status None recorded. Mental Status None recorded. Family History Nothing Reported. Medical History No medical history recorded. Past Encounters Encounter ID Performer Location Encounter Start Date Encounter Closed Date Diagnosis/Indication Diagnosis SNOMED-CT Code Diagnosis ICD10 Code Diagnosis Note [id number] Francisco Hernandez MD [facility] [address] [place] [address] 12/20/2023 10:23:17 12/20/2023 14:19:36 Impacted cerumen 21888035 H61.20 Sensorineu ral hearing loss of bilateral ears 630809275 H90.3 follow-up after audiogram Health Concerns Section Related Observation LastModified by Organization Detai ls LastModified Time None Recorded Concern Status LastModified by Organization Details LastModified Time None Recorded Advance Directives Directive N: Payers Encounter Date Sequence Insurance Name Policy Number Policy Yip Covered Member ID Yip Member ID Guarantor Name 12/20/2023 1 [facility] (MEDICARE REPLACEMENT/A DVANTAGE - HMO) [id number] Tanya Morley [id number] Tanya Morley Notes Date Note Type Note Provider Name and Address Organization Details Recorded Time 12/20/2023 text/html patient complaining of decreased hearing. His family saying he has having a hard time hearing. He is never worked in a noisy environment. He does not have any complaints of pain or drainage. Francisco Hernandez MD [address] [place], [address], [facility] 12/20/2023 10:43:09
--- OUTSIDE RECORDS SUMMARY | 2025-01-03 14:51 | XMS_ITS | Patient Health Summary ---
Author Organization [facility] Address [address] [place] [address] Care Team Providers Care Service Counselor Name Role Phone Unavailable Primary Care Provider Unavailabl e [facility] from [facility]non-owned Affiliates and Associated Physician Practices is amultiple site organization consisting of ambulatory clinics and hospital sitesin [place], [place], [place] and [place]. This disclosure is being madepursuant to the Care Everywhere program and may not contain all information available regarding this patient. Last updated 18.[facility] Allergies No known active allergies Medications * Be aware that medications may not be up to date on this document. Alwaysverify current medications with the patient. * metFORMIN (Glucophage) 500 MG tablet Take 1 (one) tablet by mouth 2 times daily * tamsulosin (Flomax) 0.4 MG capsule Take 1 (one) capsule by mouth once daily * dutasteride (Avodart) 0.5 MG capsule Take 1 (one) capsule by mouth once daily * rosuvastatin (Crestor) 20 MG tablet Take 1 (one) tablet by mouth once daily * metoprolol succinate XL 24hr (Toprol XL) 100 MG tablet Take 1 (one) tablet by mouth once daily * aspirin EC (Ecotrin) 325 MG tablet Take 1 (one) tablet by mouth once daily * baclofen (Lioresal) 20 MG tablet Take 1 (one) tablet by mouth 2 times daily * omeprazole (PriLOSEC) 40 MG capsule Take 1 (one) capsule by mouth once daily * solifenacin (Vesicare) 5 MG tablet(Started 11/19/2024) Take 1 (one) tablet by mouth once daily 4 refills by 11/19/2025 Social History Tobacco Use Types Packs/Day Years [...] Comments Blood Pressure 137/74 11/19/2024 11:13 AM CORRESPONDENCE SECTION SUPERVISOR Pulse 69 11/19/2024 11:13 AM CORRESPONDENCE SECTION SUPERVISOR Temperature 36.8 C (98.2 F) 11/19/2024 11:13 AM CORRESPONDENCE SECTION SUPERVISOR Respiratory Rate 16 08/13/2024 2:59 PM CDT Oxygen Saturation 97% 11/19/2024 11: 13 AM CORRESPONDENCE SECTION SUPERVISOR Inhaled Oxygen Concentration - - Weight 88.8 kg (195 lb 12.8 oz) 024 11:13 AM CORRESPONDENCE SECTION SUPERVISOR Height 167.6 cm (5' 6 ) 11/19/2024 11:1 3 AM CORRESPONDENCE SECTION SUPERVISOR Body Mass Index 31.6 11/19/2024 11:13 AM CORRESPONDENCE SECTION SUPERVISOR Procedures * URINALYSIS AUTO - POINT OF CARE (AMB) [facility](Performed 08/13/2024) Performed for Benign prostatic hyperplasia with incomplete bladder emptying * [facility] U&/BLADD CAPCTY US NON(Performed 08/13/2024) Performed for Benign prostatic hyperplasia with incomplete bladder emptying * [facility] U&/BLADD CAPCTY US NON(Performed 03/29/2024) Performed for Benign prostatic hyperplasia, unspecified whether lower urinary tract symptoms present * URINALYSIS AUTO - POINT OF CARE (AMB) [facility](Performed 03/29/2024) Performed for Benign prostatic hyperplasia, unspecified whether lower urinary tract symptoms present Results * URINALYSIS AUTO - POINT OF CARE (AMB) [facility] (08/13/2024 3:09 PM CDT) Only the most recent of2 resultswithin the time period is included. Glucose UA - [facility] [address] Bilirubin UA POCT - [facility] [address] Ketones UA POCT - [facility] [address] Specific [place] UA 1.[address] [facility] [address] Blood Urine POCT - [facility] [address] pH UA 6.[address] [facility] [address] Protein UA - [facility] [address] Urobilinogen UA - [facility] [address] Nitrite UA - [facility] [address] WBC UA - [facility] [address] [facility] Urine URINE / Unknown 08/13/2024 3 :09 PM CDT Stefania Abdul [employer] - POINT OF CARE ORDERABLES JAN [address] [facility] [address] [place] [address], [facility] [phone] * [facility] U&/BLADD CAPCTY US NON (08/13/2024 3:08 PM CDT) Narrative Jaylene Taylor MA - 08/13/2024 3:08 PM CDT Jaylene Taylor MA 08/13/2024 3:31 PM Bladder scan completed. 88ml post void residual. Stefania Abdul APRN-FELT MACHINE MECHANIC PROCEDURE/MINOR SURGICAL ORDERABLES * [facility] U&/BLADD CAPCTY US NON (03/29/2024 3:09 PM CDT) Narrative Radha Adorno RN - 03/29/2024 3:09 PM CDT Radha Adorno RN 03/31/2024 10:15 AM Bladder Scan performed on 03/29/2024: Results showin mls. Fior Dailey DO PROCEDURE/MINOR SHORT RGICAL ORDERABLES
[2025-01-03 14:58] VITALS: BP 153/69; PULSE 77; RESP 16; TEMP 36.4; O2SAT 97
[2025-01-03 15:31] LABS: INR 0.9
--- NOTE | 2025-01-03 16:15 | ED_ITS ---
HPI - General Adult General Chief complaint: Extremity Problem,Nontraumatic Stated complaint: concerned for DVT in right leg Focused HPI: Tanya Morley is a 74 y/o male who presents with reports of having pain behind his right knee that started about 10 days ago. He states that it started after doing exercises but his brother had similar and it was a blockage. He states that he was trying to do more exercises but it made the pain worse. GENERAL: Well-appearing, well-nourished, and in no acute distress. HEAD: Normocephalic, atraumatic. CHEST: Clear to auscultation. ?No respiratory distress. HEART: Regular rate and rhythm.? NEURO: ?Alert and oriented x3. Patient screened in triage and initial orders placed.? ?Additional care and disposition to be based upon?diagnostic testing and treatment. History of Present Illness HPI narrative: Tanya Morley is a 74 y/o male who presents with reports of having pain behind his right knee that started about 10 days ago. He states that it started after doing exercises but his brother had similar and it was a blockage. He states that he was trying to do more exercises but it made the pain worse. pulses intact / ROM intact No bony tenderness reproducible / no known trauma or fall Related Data Home Medications ?Medication ?Instructions ?Recorded ?Confirmed ?Last Taken ?Type aspirin 325 mg tablet,delayed 325 mg PO DAILY 01/27/24 02/10/24 Unknown History release dutasteride 0.5 mg capsule 0.5 mg PO DAILY 01/27/24 02/10/24 Unknown History ergocalciferol (vitamin D2) 1,250 1,250 mcg PO WEEKLY 01/27/24 02/10/24 Unknown History mcg (50,000 unit) capsule fluticasone fur. 100 mcg-umeclid 1 inh inhalation DAILY 01/27/24 02/10/24 Unknown History 62.5 mcg-vilant 25 mcg inhalat.powder (Trelegy Ellipta) metformin 500 mg tablet 500 mg PO BID 01/27/24 02/10/24 Unknown History metoprolol succinate 25 mg 25 mg PO DAILY 01/27/24 02/10/24 Unknown History tablet,extended release 24 hr rosuvastatin 20 mg tablet 20 mg PO DAILY 01/27/24 02/10/24 Unknown History tamsulosin 0.4 mg capsule 0.4 mg PO DAILY 01/27/24 02/10/24 Unknown History Allergies Allergy/AdvReac Type Severity Reaction Status Date / Time No Known Allergies Allergy Verified 01/03/25 14:51 Review of Systems Review of Systems: All systems reviewed & are unremarkable except as noted in HPI and below PMFSH Family History Family History Father Family history of premature coronary heart disease Patient's father is Social History Social History Smoking packs per day: 1 Smoking cigarettes per day: 20.0 Years smoked: 40 Smoking pack-years: 40.00 Smoking status: Former smoker Tobacco type: cigarettes Smoking end date: 11/21/14 Alcohol intake: never Spiritual care concerns: No Exam Narrative: GENERAL: Well-appearing, well-nourished, and in no acute distress. HEAD: Normocephalic, atraumatic. EYES: PERRLA and EOMI. ENT: Nares clear, no rhinorrhea or epistaxis. Mucous membranes moist. Oropharynx without tonsillar hypertrophy exudate or other lesions. Bilateral TMs pearly doll nonbulging NECK: Supple. No adenopathy or masses. No carotid bruits or JVD CHEST: Clear to auscultation. No respiratory distress. No wheezes rales or rhonchi HEART: Regular rate and rhythm. No murmur heard. Normal peripheral pulses. EXTREMITIES: Normal range of motion. No edema. SKIN: Warm, dry, no rash. NEURO: No focal deficits. Alert and oriented x3. PSYCH: Normal mood and affect. Course Vital Signs Vital signs: Vital Signs Temperature 36.4 C L 01/03/25 14:58 Pulse Rate 77 01/03/25 14:58 Respiratory Rate 16 01/03/25 14:58 Blood Pressure 153/69 H 01/03/25 14:58 Pulse Oximetry 97 01/03/25 14:58 Oxygen Delivery Room Air 01/03/25 14:58 Temperature 36.4 C L 01/03/25 14:58 Pulse Rate 77 01/03/25 14:58 Respiratory Rate 16 01/03/25 14:58 Blood Pressure 153/69 H 01/03/25 14:58 Pulse Oximetry 97 01/03/25 14:58 Oxygen Delivery Room Air 01/03/25 14:58 Medical Decision Making MDM Narrative Medical decision making narrative: 70-year-old male who presents today with complaints of having pain behind his right knee for about 10 days. He correlates this with exercising he did around that but stopped because it was causing more pain. He was concerned he had a blood clot because his brother just recently got diagnosed with blood clot. Range of motion intact neurovascular intact no history of trauma no injury. Ultrasound negative for DVT discussed these results with the patient and he is really. Encouraged to continue to wear the Samy wrap rice therapy Tylenol Motrin for pain close PCP follow-up return precautions discussed Medical Records Medical records reviewed: Yes I reviewed the external patient's medical records. Vital Signs Vital Signs: Vital Signs Temperature 36.4 C L 01/03/25 14:58 Pulse Rate 77 01/03/25 14:58 Respiratory Rate 16 01/03/25 14:58 Blood Pressure 153/69 H 01/03/25 14:58 Pulse Oximetry 97 01/03/25 14:58 Oxygen Delivery Room Air 01/03/25 14:58 Temperature 36.4 C L 01/03/25 14:58 Pulse Rate 77 01/03/25 14:58 Respiratory Rate 16 01/03/25 14:58 Blood Pressure 153/69 H 01/03/25 14:58 Pulse Oximetry 97 01/03/25 14:58 Oxygen Delivery Room Air 01/03/25 14:58 Vitals reviewed Lab Data Lab results reviewed: Yes I reviewed the patient's lab results. Labs: Lab Results 01/03/25 Range/Units 15:04 PT 13.0 (11.1-14.7) Seconds INR 0.9 APTT 26.0 (22.3-36.8) Seconds Imaging Data Radiologist's impression: Impressions Venous Doppler Study 01/03/25 15:31 IMPRESSION: 1. No deep venous thrombosis. Discharge Plan Discharge Clinical Impression: Acute knee pain, Muscle strain Patient Disposition: Home, Self-Care Condition: Stable Instructions: Antibiotic Form Additional Instructions: Continue to wear the SAMY wrap to support your knee Rest / Elevate / Ice area of pain You may take Tylenol and Ibuprofen for pain as needed This should improve in the next 3-5 days Follow up with your PCP in 1 week If you develop any worsening symptoms such as swelling/ increased pain/ numbness/ tingling/ falls/ redness then return to the ER> Patient Language: Setswana Prescriptions: No Action metformin 500 mg tablet 500 mg PO BID aspirin 325 mg tablet,delayed release (DR/EC) 325 mg PO DAILY tamsulosin 0.4 mg capsule 0.4 mg PO DAILY metoprolol succinate 25 mg tablet extended release 24 hr 25 mg PO DAILY ergocalciferol (vitamin D2) 1,250 mcg (50,000 unit) capsule 1,250 mcg PO WEEKLY dutasteride 0.5 mg capsule 0.5 mg PO DAILY rosuvastatin 20 mg tablet 20 mg PO DAILY Trelegy Ellipta 100-62.5-25 mcg blister with device 1 inh INHALATION DAILY mupirocin 2 % ointment 1 applic topical BID 7 Days Qty: 22 0RF clindamycin HCl 300 mg capsule 300 mg PO Q8H 10 Days Qty: 30 0RF pantoprazole [Protonix] 40 mg tablet,delayed release (DR/EC) 40 mg PO QAM 28 Days Qty: 28 0RF Follow-up/Referrals: Eusebio Crystal MD [Primary Care Provider] - 1 Week Time of Disposition: 16:27
--- OUTSIDE RECORDS SUMMARY | 2025-01-03 16:43 | XMS_ITS | Referral Summary ---
Author Organization [facility] Address [address] [place] [address] Care Team Providers Care Jukebox Checker Name Role Phone Eusebio Crystal MD Primary Care Provider [phone] Encounters Date Type Department Care Team Description 12/19/2024 9:15 AM CHRISTIAN COUNSELOR Office Visit [facility] Pulmonary [address] [place] [phone] Jd Ariza MD PERRY (obstructive sleep apnea) (Primary Dx); Psychophysiological insomnia; Simple chronic bronchitis (HCC); Cigarette nicotine dependence in remission; Multiple pulmonary nodules; BMI 31.0-31.9,adult; Periodic limb movement 11/16/2024 Telephone [facility] [address] [place] [address] Jd Ariza MD Cpap titration results 11/11/2024 7:49 PM CHRISTIAN COUNSELOR - 11/11/2024 11:59 PM CHRISTIAN COUNSELOR Hospital Encounter [facility] [address] [place] [address] Other fatigue; PERRY (obstructive sleep apnea); Psychophysiological insomnia; Wheezing; Simple chronic bronchitis (HCC); BMI 31.0-31.9,adult; Cigarette nicotine dependence in remission Discharge Disposition: Discharge to home or self care 11/05/2024 9:15 AM CHRISTIAN COUNSELOR - 11/05/2024 11:59 PM CHRISTIAN COUNSELOR Hospital [facility] [place] [address] [place] [address] Personal history of nicotine dependence [...] Comments Blood Pressure 122/62 12/19/2024 10:18 AM CHRISTIAN COUNSELOR Pulse 72 12/19/2024 10:18 AM CHRISTIAN COUNSELOR Temperature 36.9 C (98.4 F) 12/19/2024 10:18 AM CHRISTIAN COUNSELOR Respiratory Rate 18 12/19/2024 10:18 AM CHRISTIAN COUNSELOR Oxygen Saturation 96% 12/19/2024 10:18 AM CHRISTIAN COUNSELOR Inhaled Oxygen Concentration - - Weight 88 kg (194 lb) 12/19/2024 10:18 AM CHRISTIAN COUNSELOR Height 167.6 cm (5' 6 ) 12/19/2024 10:18 AM CHRISTIAN COUNSELOR Body Mass Index 31.31 12/19/2024 10:18 AM CHRISTIAN COUNSELOR Plan of Treatment Not on file Procedures Procedure Name Priority Date/Time Associated Diagnosis Comments PSG (SIMPLE) Routine 11/11/2024 7:49 PM CHRISTIAN COUNSELOR Other fatigue PERRY (obstructive sleep apnea) Psychophysiologica l insomnia Wheezing Simple chronic bronchitis (HCC) BMI 31.0-31.9,adult Cigarette nicotine dependence in remission CT LUNG CANCER SCREENING Schedule Routine, Read Routine (OP Routine) 11/05/2024 9:38 AM CHRISTIAN COUNSELOR Personal history of nicotine dependence from Last 3 Months Results * PSG (11/11/2024 7:49 PM CHRISTIAN COUNSELOR) Jd Ariza MD SLEEP CENTER ORDERABLES Fin al Result [facility] SLEEP MEDICINE [address] [place] [address] * CT Lung Cancer Screening (11/05/2024 9:38 AM CHRISTIAN COUNSELOR) Anatomical Region Laterality Modality Chest N/A Computed Tomogra phy 11/09/2024 10:4 6 AM CHRISTIAN COUNSELOR Narrative 11/09/2024 10:54 AM CHRISTIAN COUNSELOR EXAM DESCRIPTION: CT LUNG CANCER SCREENING REASON [...] Zhen Rojo M.D. AG T: Report ID: [id number] Reading Location: [place] [address] Procedure Note Zhen Rojo MD - 11/09/2024 [...] Zhen Rojo M.D. AG T: Report ID: [id number] Reading Location: [place] [address] Jd Ariza MD IMG CT PROCEDURES Final Res ult from Last 3 Months Insurance [place] [address] Care Teams Jukebox Checker Relationship Specialty Start Date End Date Eusebio Crystal MD [facility] [address] [address] PCP - General Emergency Medicine 09/05/24
--- OUTSIDE RECORDS SUMMARY | 2025-01-03 16:43 | XMS_ITS | Clinical Summary ---
Author Organization [facility] Address [address] [address] Care Team Providers Care Wrap Turner Name Role Phone Unavailable Primary Care Provider Unavailabl e Source Comments [facility],non-owned Affiliates and Associated Physician Practices is amultiple site organization consisting of ambulatory clinics and hospital sitesin [place], [place], [place] and [place]. This disclosure is being madepursuant to the Care Everywhere program and may not contain all information available regarding this patient. Last updated 18.[facility] Allergies No known active allergies Medications * [...] Department Care Team Description 11/19/2024 11:30 AM FISH TRAPPER Office Visit [facility] - Urology [address] [place] [address] Stefania Abdul, EWA Nocturia (Primary Dx); Benign [...] Comments Blood Pressure 137/74 11/19/2024 11:13 AM FISH TRAPPER Pulse 69 11/19/2024 11:13 AM FISH TRAPPER Temperature 36.8 C (98.2 F) 11/19/2024 11:13 AM FISH TRAPPER Respiratory Rate 16 08/13/2024 2:59 PM CDT Oxygen Saturation 97% 11/19/2024 11: 13 AM FISH TRAPPER Inhaled Oxygen Concentration - - Weight 88.8 kg (195 lb 12.8 oz) 024 11:13 AM FISH TRAPPER Height 167.6 cm (5' 6 ) 11/19/2024 11:1 3 AM FISH TRAPPER Body Mass Index 31.6 11/19/2024 11:13 AM FISH TRAPPER Plan of Treatment Upcoming Encounters Date Type Department Care Team (Late st Contact Info) Description 02/18/2025 10:30 AM CDT Office Visit [facility] - Urology [address] [place] [address] [address] [place] [address] Stefania Abdul, EWA [address] [facility] [address] Health Maintenance Due Date Last Done Comments [...] on patient's age [place] [address]
--- OUTSIDE RECORDS SUMMARY | 2025-01-03 16:43 | XMS_ITS | Patient Health Summary ---
Author Organization [facility] Address [address] [address] Care Team Providers Care Orthopedic Technician Name Role Phone Unavailable Primary Care Provider Unavailabl e Note from [facility],non-owned Affiliates and Associated Physician Practices is amultiple site organization consisting of ambulatory clinics and hospital sitesin [place], [place], [place] and [place]. This disclosure is being madepursuant to the Care Everywhere program and may not contain all information available regarding this patient. Last updated 18.[facility] Allergies No known active allergies Medications * [...] Comments Blood Pressure 137/74 11/19/2024 11:13 AM STONE DRILLER Pulse 69 11/19/2024 11:13 AM STONE DRILLER Temperature 36.8 C (98.2 F) 11/19/2024 11:13 AM STONE DRILLER Respiratory Rate 16 08/13/2024 2:59 PM CDT Oxygen Saturation 97% 11/19/2024 11: 13 AM STONE DRILLER Inhaled Oxygen Concentration - - Weight 88.8 kg (195 lb 12.8 oz) 024 11:13 AM STONE DRILLER Height 167.6 cm (5' 6 ) 11/19/2024 11:1 3 AM STONE DRILLER Body Mass Index 31.6 11/19/2024 11:13 AM STONE DRILLER Procedures * URINALYSIS AUTO - POINT OF CARE (AMB) [facility](Performed 08/13/2024) Performed for Benign prostatic hyperplasia with incomplete bladder emptying * AL MSR PVR U&/BLADD CAPCTY US NON(Performed 08/13/2024) Performed for Benign prostatic hyperplasia with incomplete bladder emptying * AL MSR PVR U&/BLADD CAPCTY US NON(Performed 03/29/2024) [...] - [facility] [address] Specific [place] UA 1.[address] [facility] [address] Blood Urine POCT - [facility] [address] pH UA 6.[address] [facility] [address] Protein UA - [facility] [address] Urobilinogen UA - [facility] [address] Nitrite UA - [facility] [address] WBC UA - [facility] [address] [facility] Urine URINE / Unknown 08/13/2024 3 :09 PM CDT Stefania Abdul PULP HOUSE SUPERVISOR-PRODUCTION ENGINEER TRACK LAB - POINT OF CARE ORDERABLES JAN [address] [facility] [address] [place] [address], [facility] [phone] * AL MSR PVR U&/BLADD CAPCTY US NON (08/13/2024 3:08 PM CDT) Narrative Jaylene Taylor MA - 08/13/2024 3:08 PM CDT Jaylene Taylor MA 08/13/2024 3:31 PM Bladder scan completed. 88ml post void residual. Stefania Abdul APRN-PRODUCTION ENGINEER TRACK PROCEDURE/MINOR SURGICAL ORDERABLES * AL MSR PVR U&/BLADD CAPCTY US NON (03/29/2024 3:09 PM CDT) Narrative Radha Adorno RN - 03/29/2024 3:09 PM CDT Radha Adorno RN 03/31/2024 10:15 AM Bladder Scan performed on 03/29/2024: Results showin mls. Fior Dailey DO PROCEDURE/MINOR SHORT RGICAL ORDERABLES
--- OUTSIDE RECORDS SUMMARY | 2025-01-03 16:43 | XMS_ITS | Clinical Summary ---
Author Organization [facility] Tawnya osuna [facility]ly [facility] Address [address] [place] [address] Care Team Providers Care Volunteer Services Manager Name Role Phone Eusebio Crystal MD Primary Care Provider [phone] Allergies No known active allergies Medications aspirin [...] on file Legal Sex Male 7:36 PM LINUX SYSTEMS ANALYST Gender Identity Not on file Sexual Orientation [...] Description 04/18/2025 11:15 AM CDT Office Visit [facility] Oncology and Hematology - [place] [place] [address] Mendez Amezcua MD [address] [facility] [address] [place] [address] Health Maintenance Due Date Last [...] 2015 INFLUENZA VACCINE (#1) 2024 Medicare [place] ([place]) Prev entative Visit/Annual Wellness Visit 11/21/2024 RSV VACCINE (60+ or ) (1 - 1-dose 75+ series) 2025 Insurance [facility] [id number] MEDICAID [place] Care Teams Volunteer Services Manager Relationship Specialty Start Date End Date Eusebio Crystal MD [address] [place] [phone] PCP - General Family Practice 02/02/24
--- OUTSIDE RECORDS SUMMARY | 2025-01-03 16:43 | XMS_ITS | Clinical Summary ---
Author Organization [facility] Address [address] [place] [address] Care Team Providers Care Executive Steward Name Role Phone Eusebio Crystal MD Primary Care Provider [phone] Allergies No known active allergies Medications tamsulosin [...] Department Care Team Description 12/19/2024 9:15 AM WINE BLENDER Office Visit [facility] Pulmonary [address] [place] [phone] Jd Ariza MD PERRY (obstructive sleep apnea) (Primary Dx); Psychophysiological insomnia; Simple chronic bronchitis (HCC); Cigarette nicotine dependence in remission; Multiple pulmonary nodules; BMI 31.0-31.9,adult; Periodic limb movement 11/16/2024 Telephone [facility] [address] [place], [place] [phone] Jd Ariza MD Cpap titration results 11/11/2024 7:49 PM WINE BLENDER - 11/11/2024 11:59 PM WINE BLENDER Hospital Encounter [facility] [address] [place], [place] [id number] Other fatigue; PERRY (obstructive sleep apnea); Psychophysiological insomnia; Wheezing; Simple chronic bronchitis (HCC); BMI 31.0-31.9,adult; Cigarette nicotine dependence in remission Discharge Disposition: Discharge to home or self care 11/05/2024 9:15 AM WINE BLENDER - 11/05/2024 11:59 PM WINE BLENDER Hospital [facility] [place] [address] [place] [address] Personal history of nicotine dependence Discharge Disposition: [...] Comments Blood Pressure 122/62 12/19/2024 10:18 AM WINE BLENDER Pulse 72 12/19/2024 10:18 AM WINE BLENDER Temperature 36.9 C (98.4 F) 12/19/2024 10:18 AM WINE BLENDER Respiratory Rate 18 12/19/2024 10:18 AM WINE BLENDER Oxygen Saturation 96% 12/19/2024 10:18 AM WINE BLENDER Inhaled Oxygen Concentration - - Weight 88 kg (194 lb) 12/19/2024 10:18 AM WINE BLENDER Height 167.6 cm (5' 6 ) 12/19/2024 10:18 AM WINE BLENDER Body Mass Index 31.31 12/19/2024 10:18 AM WINE BLENDER Plan of Treatment Health Maintenance Due Date [...] Comments PSG (SIMPLE) Routine 11/11/2024 7:49 PM WINE BLENDER Other fatigue PERRY (obstructive sleep apnea) Psychophysiologica l insomnia Wheezing Simple chronic bronchitis (HCC) BMI 31.0-31.9,adult Cigarette nicotine dependence in remission CT LUNG CANCER SCREENING Schedule Routine, Read Routine (OP Routine) 11/05/2024 9:38 AM WINE BLENDER Personal history of nicotine dependence from Last 3 Months Results * PSG (11/11/2024 7:49 PM WINE BLENDER) us Jd Ariza MD SLEEP CENTER ORDERABLES Fin al Result [facility] SLEEP MEDICINE [address] [place] [address], [facility] * CT Lung Cancer Screening (11/05/2024 9:38 AM WINE BLENDER) Anatomical Region Laterality Modality Chest N/A Computed Tomogra phy 11/09/2024 10:4 6 AM WINE BLENDER Narrative 11/09/2024 10:54 AM WINE BLENDER EXAM DESCRIPTION: CT LUNG CANCER SCREENING REASON [...] by Zhen Rojo M.D. T: Report ID: [id number] Reading Location: [place] [address] Procedure Note Zhen Rojo MD - 11/09/2024 [...] Zhen Rojo M.D. AG T: Report ID: [id number] Reading Location: [place] [address] Jd Ariza MD IM CT PROCEDURES Final Res ult from Last 3 Months Insurance MEDICARE SOLUTIONS Care Teams Executive Steward Relationship Specialty Start Date End Date Eusebio Crystal MD [address] [place] [id number] PCP - General Emergency Medicine 09/05/24
--- OUTSIDE RECORDS SUMMARY | 2025-01-03 16:43 | XMS_ITS | Referral Summary ---
Author Organization [facility] Address [address] [facility] [place] [address] Care Team Providers Care Test Baker Name Role Phone Unavailable Primary Care Provider Unavailabl e Source Comments [facility],non-owned Affiliates and Associated Physician Practices is amultiple site organization consisting of ambulatory clinics and hospital sitesin [place], [place], [place] and [place]. This disclosure is being madepursuant to the Care Everywhere program and may not contain all information available regarding this patient. Last updated 18.[facility] Encounters Date Type Department Care Team Description 11/19/2024 11:30 AM NURSE UNIT MANAGER Office Visit [facility] - Urology [address] [place] [address] [address] [place] [address] Stefania Abdul, ANIMAL BIOLOGIST-CHEMICAL ENGINEERING PROFESSOR Nocturia (Primary Dx); Benign prostatic hyperplasia with [...] Comments Blood Pressure 137/74 11/19/2024 11:13 AM NURSE UNIT MANAGER Pulse 69 11/19/2024 11:13 AM NURSE UNIT MANAGER Temperature 36.8 C (98.2 F) 11/19/2024 11:13 AM NURSE UNIT MANAGER Respiratory Rate 16 08/13/2024 2:59 PM CDT Oxygen Saturation 97% 11/19/2024 11: 13 AM NURSE UNIT MANAGER Inhaled Oxygen Concentration - - Weight 88.8 kg (195 lb 12.8 oz) 024 11:13 AM NURSE UNIT MANAGER Height 167.6 cm (5' 6 ) 11/19/2024 11:1 3 AM NURSE UNIT MANAGER Body Mass Index 31.6 11/19/2024 11:13 AM NURSE UNIT MANAGER Plan of Treatment Upcoming Encounters Date Type Department Care Team (Late st Contact Info) Description 02/18/2025 10:30 AM CDT Office Visit [facility] - Urology [address] [place] [address] [address] [place] [address] Stefania Abdul T, ANIMAL BIOLOGIST-CHEMICAL ENGINEERING PROFESSOR [address] [facility] DEPT [place] [address]
[2025-01-03 16:47] VITALS: BP 138/84; PULSE 80; RESP 14; O2SAT 98
== END 2025-01-03 16:47 | disposition home or self-care (01) ==
LOC: ANHED 16:41
PROVIDERS: Emergency Medicine; Emergency Provider Nurse Practitioner Family; PCP Emergency Medicine
DX: S86.911A Strain of unspecified muscle(s) and tendon(s) at lower leg level, right leg, initial encounter (principal); M79.661 Pain in right lower leg; Z87.891 Personal history of nicotine dependence; Z79.82 Long term (current) use of aspirin; Z79.84 Long term (current) use of oral hypoglycemic drugs; Z79.899 Other long term (current) drug therapy; X50.9XXA Other and unspecified overexertion or strenuous movements or postures, initial encounter
CPT/HCPCS: 36415; 85610; 85730; 93971; 99284

== ENCOUNTER 2025-01-31 11:55 | Outpatient (CLI) | payer MEDICARE, MEDICAID, SELFPAY ==
[2025-01-31 12:08] LABS: Basophils Percent Auto 0.7 % (0.2-1.2); Eosinophils Absolute Auto 0.2 K/mm3 (0-0.3); Eosinophils Percent Auto 3.5 % (0-4.4); Hematocrit 40.8 % (42.0-52.0); Hemoglobin 14.1 g/dL (14.0-18.0); Immature Granulocyte Absolute 0.02 K/mm3 (0.00-0.031); Immature Granulocyte Percent A 0.4 % (0-0.5); Lymphocytes Absolute Auto 1.74 K/mm3 (0.9-3.2); Lymphocytes Percent Auto 32.4 % (18.3-44.2); Mean Corpuscular HGB Conc 34.6 g/dl (32-36); Mean Corpuscular Hemoglobin 30.7 pg (26-34); Mean Corpuscular Volume 88.7 fl (80-100); Mean Platelet Volume 9.2 fl (7.4-10.4); Monocytes Absolute Auto 0.6 K/mm3 (0.1-0.6); Monocytes Percent Auto 10.6 % (2.6-8.5); Neutrophils Absolute Auto 2.8 K/mm3 (1.3-6.7); Neutrophils Percent Auto 52.4 % (45.5-73.1); Platelet Count Result 227 k/mm3 (150-375); Red Cell Distribution Width 12.5 % (11.5-14.5); White Blood Count 5.4 K/mm3 (4.5-10.0)
--- OUTSIDE RECORDS SUMMARY | 2025-01-31 13:40 | XMS_ITS | Patient Health Summary ---
Author Organization [facility] Address [address] [place] [address] Care Team Providers Care Hand Alterations Seamstress Name Role Phone Unavailable Primary Care Provider Unavailabl e Note from [facility],non-owned Affiliates and Associated Physician Practices is amultiple site organization consisting of ambulatory clinics and hospital sitesin [place], [place], [place] and [place]. This disclosure is being madepursuant to the Care Everywhere program and may not contain all information available regarding this patient. Last updated 18.[facility] Allergies No known active allergies Medications [...] Comments Blood Pressure 137/74 11/19/2024 11:13 AM BOX INSPECTOR Pulse 69 11/19/2024 11:13 AM BOX INSPECTOR Temperature 36.8 C (98.2 F) 11/19/2024 11:13 AM BOX INSPECTOR Respiratory Rate 16 08/13/2024 2:59 PM CDT Oxygen Saturation 97% 11/19/2024 11: 13 AM BOX INSPECTOR Inhaled Oxygen Concentration - - Weight 88.8 kg (195 lb 12.8 oz) 024 11:13 AM BOX INSPECTOR Height 167.6 cm (5' 6 ) 11/19/2024 11:1 3 AM BOX INSPECTOR Body Mass Index 31.6 11/19/2024 11:13 AM BOX INSPECTOR Procedures * URINALYSIS AUTO - POINT OF CARE (AMB) [facility](Performed 08/13/2024) Performed for Benign prostatic hyperplasia with incomplete bladder emptying * [place] [facility] PVR U&/BLADD CAPCTY US NON(Performed 08/13/2024) Performed for Benign prostatic hyperplasia with incomplete bladder emptying * [place] MSR PVR U&/BLADD CAPCTY US NON(Performed 03/29/2024) [...] - [facility] [address] Specific [place] UA 1.[address] [facility] [address] Blood Urine POCT - [facility] [address] pH UA 6.[address] [facility] [address] Protein UA - [facility] [address] Urobilinogen UA - [facility] [address] Nitrite UA - [facility] [address] WBC UA - [facility] [address] [facility] Urine URINE / Unknown 08/13/2024 3 :09 PM CDT Stefania Abdul PAPER MACHINE SUPERVISOR-GRANITE POLISHER MACHINE LAB - POINT OF CARE ORDERABLES JAN [address] [facility] [address] [place] [address], [facility] [phone] * [place] MSR PVR U&/BLADD CAPCTY US NON (08/13/2024 3:08 PM CDT) Narrative Jaylene Taylor MA - 08/13/2024 3:08 PM CDT Jayelne Taylor MA 08/13/2024 3:31 PM Bladder scan completed. 88ml post void residual. Stefania Abdul APRN-GRANITE POLISHER MACHINE PROCEDURE/MINOR SURGICAL ORDERABLES * [place] MSR PVR U&/BLADD CAPCTY US NON (03/29/2024 3:09 PM CDT) Narrative Radha Adorno RN - 03/29/2024 3:09 PM CDT Radha Adorno RN 03/31/2024 10:15 AM Bladder Scan performed on 03/29/2024: Results showin mls. Fior Dailey DO PROCEDURE/MINOR SHORT RGICAL ORDERABLES
--- OUTSIDE RECORDS SUMMARY | 2025-01-31 13:40 | XMS_ITS | Referral Summary ---
Author Organization [facility] Address [address] [place] [address] Care Team Providers Care Embossing Press Operator Apprentice Name Role Phone Unavailable Primary Care Provider Unavailabl e Source Comments [facility],non-owned Affiliates and Associated Physician Practices is amultiple site organization consisting of ambulatory clinics and hospital sitesin [place], [place], [place] and [place]. This disclosure is being madepursuant to the Care Everywhere program and may not contain all information available regarding this patient. Last updated 18.[facility] Encounters Date Type Department Care Team Description 11/19/2024 11:30 AM BUILDINGS AND GROUNDS SUPERINTENDENT Office Visit [facility] - Urology [address] [place] [address] [address] [place] [address] Stefania Abdul, BUREAU CHIEF-PERFORMANCE MANAGEMENT CONSULTANT Nocturia (Primary Dx); Benign prostatic hyperplasia with [...] Comments Blood Pressure 137/74 11/19/2024 11:13 AM BUILDINGS AND GROUNDS SUPERINTENDENT Pulse 69 11/19/2024 11:13 AM BUILDINGS AND GROUNDS SUPERINTENDENT Temperature 36.8 C (98.2 F) 11/19/2024 11:13 AM BUILDINGS AND GROUNDS SUPERINTENDENT Respiratory Rate 16 08/13/2024 2:59 PM CDT Oxygen Saturation 97% 11/19/2024 11: 13 AM BUILDINGS AND GROUNDS SUPERINTENDENT Inhaled Oxygen Concentration - - Weight 88.8 kg (195 lb 12.8 oz) 024 11:13 AM BUILDINGS AND GROUNDS SUPERINTENDENT Height 167.6 cm (5' 6 ) 11/19/2024 11:1 3 AM BUILDINGS AND GROUNDS SUPERINTENDENT Body Mass Index 31.6 11/19/2024 11:13 AM BUILDINGS AND GROUNDS SUPERINTENDENT Plan of Treatment Upcoming Encounters Date Type Department Care Team (Late st Contact Info) Description 02/18/2025 10:30 AM CDT Office Visit [facility] - Urology [address] [place] [address] [address] [place] [address] Stefania Abdul T, BUREAU CHIEF-PERFORMANCE MANAGEMENT CONSULTANT [address] [facility] [place] [address]
--- OUTSIDE RECORDS SUMMARY | 2025-01-31 13:40 | XMS_ITS | Data Portability ---
Author Organization [facility], [facility] IP Address [address] [place] [address] Assessment No assessment recorded. Plan of Treatment Reminders Order Date Submit Date Provider Last Modified By Organization Details Last Modified Time Details Appointments None recorded. Lab None recorded. Referral audiologis t referral 2023 024 ISMAEL Arora [facility], [address] [place], [address], 4 11:26:59 Procedures None recorded. Surgeries None recorded. Imaging None recorded. Medication Orders None recorded. Patient TargetsNo targets recorded. Patient InstructionsNo instructions recorded. Reason for Referral Network Services Project Manager Referral for Sen sorineural hearing loss of bilateral ears Referring Physician: Francisco Hernandez Otolaryngology, Encounter Date: 12/20/2023 Procedures Surgical History Date Name Laterality Status Provider Name and Address Organization Details Recorded Time Cerumen removal without microscope completed Paul Veloz MA [facility] 12/20/2023 10:32:53 Imaging Results None recorded. Procedure [...] Address Organization Details Last Updated DateTime 4 70192.8 5 g 31.9 kg/m2 167.64 cm 98.6 [...] SNOMED-CT Code Diagnosis ICD10 Code Diagnosis Note [id number] Francisco Hernandez MD [facility] [address] [place] [address] 12/20/2023 10:23:17 12/20/2023 14:19:36 Impacted cerumen 74827042 H61.20 Sensorineu ral hearing loss of bilateral ears [id number] H90.3 follow-up after audiogram Health Concerns Section Related Observation LastModified by Organization Detai ls LastModified Time None Recorded Concern Status LastModified by Organization Details LastModified Time None Recorded Advance Directives Directive N: Payers Encounter Date Sequence Insurance Name Policy Number Policy Yip Covered Member ID Yip Member ID Guarantor Name 12/20/2023 1 [facility] (MEDICARE REPLACEMENT/A DVANTAGE - HMO) [id number] Tanya Morley [id number] Tanya Morley Notes Date Note Type Note Provider Name and Address Organization Details Recorded Time 12/20/2023 text/html patient complaining of decreased hearing. His family saying he has having a hard time hearing. He is never worked in a noisy environment. He does not have any complaints of pain or drainage. Francisco Hernandez MD [address] [place], [address], [facility] 12/20/2023 10:43:09
--- OUTSIDE RECORDS SUMMARY | 2025-01-31 13:40 | XMS_ITS | Clinical Summary ---
Author Organization [facility] Tawnya osuna [facility] Address [address] [place] [address] Care Team Providers Care Nutrition And Dietetics Instructor Name Role Phone Eusebio Crystal MD Primary Care Provider Allergies No known active allergies Medications aspirin [...] Encounters Date Type Department Care Team Description 01/28/2025 External Device Data STL ABSTRACTION Provider, Abstract 01/15/2025 External Device Data STL ABSTRACTION Provider, Abstract 12/13/2024 External Device Data STL ABSTRACTION Provider, [...] on file Legal Sex Male 7:36 PM DIRECTOR OF STRATEGY & MOBILE Gender Identity Not on file Sexual Orientation [...] Description 04/18/2025 11:15 AM CDT Office Visit [facility] Oncology and Hematology - [place] [address] [facility] [address] [place] [address] Mendez Amezcua MD [address] [place] [address] Health Maintenance Due Date Last Done Comments DIABETES ANNUAL FOOT EXAM 1968 DIABETES ANNUAL RETINAL EXAM 1968 DIABETES HBA1C Q 6 MONTHS 1968 DIABETES MICROALBUMIN ANNUAL SCREEN 1968 LDL CHOLESTEROL ANNUAL 1968 DTAP/TDAP/TD VACCINES (1 - Tdap) 1969 PNEUMOCOCCAL VACCINE 50+ YEARS (1 of 2 - PCV) 06/01/19 69 COLORECTAL SCREENING 1995 Colorectal Cancer Screening 1995 FIT-DNA Q 3 years 1995 FIT/FOBT Q 1 year 1995 Flex Sig/CT Colonography Q 5 years 1995 Lung Cancer Screening 2000 ZOSTER VACCINE (1 of 2) 2000 Abdominal Aortic Aneurysm (AAA) Screening 2015 INFLUENZA VACCINE (#1) 2024 Medicare Advantage ([place]) Prev entative Visit/Annual Wellness Visit 11/21/2024 RSV VACCINE (60+ or ) (1 - 1-dose 75+ series) [address] [id number] [place]ID [place] Care Teams Nutrition And Dietetics Instructor Relationship Specialty Start Date End Date Eusebio Crystal MD [address] [place] [phone] PCP - General Family Practice 02/02/24
--- OUTSIDE RECORDS SUMMARY | 2025-01-31 13:40 | XMS_ITS | CONTINUITY OF CARE DOCUMENT ---
Author Name brandi paz Address Unknown Organization [facility] Address [address] [place] [address] Phone [phone] Care Team Providers Care Veneer Lathe Operator Name Role Phone Doc SCHAFER, Brandon Unavailable NISSA CAMPBELL MD Unavailable [phone] NISSA CAMPBELL MD Unavailable [phone] PROBLEMS Condition Status Date Provider Notes Fatigue active Brandon Roach MD Cardiology examination active Brandon Roach MD Diabetes, Type 2 active Brandon Roach MD Hyperlipidemia active Brandon Roach MD Hypertension active Brandon Roach MD Angina pectoris active Brandon Roach MD Chest pain-type to be determined active Rito Roach MD Heart murmur, systolic active Brandon Roach MD Snoring active Brandon Roach MD ENCOUNTERS Date Type Provider Location Encounter Diag nosis - In-person encounter Office Visit Brandon Roach MD [facility] - In-person encounter Office Visit Brandon Roach MD [facility] Cardiology examinationDiabetes, Type 2HyperlipidemiaHyperten sionAngina pectorisChest pain-type to be determinedHeart murmur, systolicSnoring VITAL SIGNS Date Observation Value Provider Body Mass Index (Ratio) 30.82 kg/m2 Roddy Roach MD blood pressure, cuff size regular Do simran Adler blood pressure, diastolic 82 mm[Hg] Do simran Adler blood pressure, systolic 132 mm[Hg] Justus Adler oxygen saturation, oximetry 97 % Juan J Adler respiratory rate E&M 16 /min Juan J Vitor pulse rate 71 /min Juan J Vitor weight E&M 191 [lb_av] Juan J Vitor height E&M 66 [in_i] Juan J Vitor Body Mass Index (Ratio) 30.66 kg/m2 [place] ntcatalina Cranmer blood pressure, diastolic 67 mm[Hg] Li nkLogic blood pressure, systolic 127 mm[Hg] Sandra kLogic blood pressure, cuff size regular Sterling rret blood pressure, diastolic 67 mm[Hg] Sterling rret blood pressure, systolic 127 mm[Hg] Kell ret pulse rate 69 /min Bradley y height E&M 66 [in_i] Bradley y respiratory rate E&M 12 /min Bradley oxygen saturation, oximetry 98 % Bradley weight E&M 190 [lb_av] Bradley y ALLERGIES No Known Drug Allergies HISTORY OF MEDICATION USE Medication Status Instructions Dates Provider Indications Com ments rosuvastatin 20 mg tablet active metoprolol succinate 25 mg tablet extended release 24 hr active tamsulosin 0.4 mg capsule active metformin 500 mg tablet active aspirin 325 mg tablet,delayed release (DR/EC) active TAKE 1 TABLET BY MOUTH EVERY DAY SOCIAL HISTORY Date Observation Value Provider cigarette use yes Brandon Roach MD smoking status Former smoker Brandon aranda MD cigarette use yes Bradley Del Real ay smoking status Former smoker Bradley Condon rday INSURANCE PROVIDERS Payer name Policy type / Coverage type Vinh red libertarian ID [id number] (PPO C-SNP) Floqq insurance [email or web address] [id number] [facility] Medicaid 3 [id number] ADVANCE DIRECTIVES Name Date DISCUSSED - NO DECISION MADE TREATMENT PLAN Date Name Performer Cardiology Brandon Roach MD Cardiology:Recheck iron studies Brandon Roach MD Cardiology:Has sleep apnea T he patient is using CPAP on a regular basis. The patient has been benefiting from therapy and should continue use. Brandon Roach MD Cardiology: S tress kailash negative for ischemia Brandon Roach MD Cardiology Brandon Roach MD Cardiology:Sleep stefania dy positive for OSAS. A uto pap ordered Brandon Roach MD Cardiology:ECHO without signific ant findings Brandon Roach MD Cardiology:Stress kailash negative f or ischemia Brandon Roach MD Cardiology:Needs home sleep stud y Brandon Roach MD Cardiology Brandon Roach MD Cardiology Brandon Roach MD Cardiology:Needs ECHO Brandon blakely MD Cardiology:Patient h istory very concerning for CAD. Needs stress cardiolite. Brandon Roach MD Date Name IRON AND TOTAL IRON BINDING CAPACITY FERRITIN CBC (INCLUDES DIFF/P LT) Complete Echo Stress Exercise Card iolite Sleep Study Home HISTORY OF PROCEDURES Procedure Date Procedure Name Provider Procedure Notes S tatus EKG Brandon Roach MD complete d
--- OUTSIDE RECORDS SUMMARY | 2025-01-31 13:40 | XMS_ITS | Clinical Summary ---
Author Organization [facility] Address [address] [place] [address] Care Team Providers Care Certified Medical Coding Specialist Name Role Phone Unavailable Primary Care Provider Unavailabl e Source Comments [facility],non-owned Affiliates and Associated Physician Practices is amultiple site organization consisting of ambulatory clinics and hospital sitesin [place], [place], [place] and [place]. This disclosure is being madepursuant to the Care Everywhere program and may not contain all information available regarding this patient. Last updated 18.[facility] Allergies No known active allergies Medications * [...] Department Care Team Description 11/19/2024 11:30 AM RAM PRESS OPERATOR Office Visit [facility] - Urology [address] [place] [address] Stefania Abdul, EWA Nocturia (Primary Dx); Benign [...] Comments Blood Pressure 137/74 11/19/2024 11:13 AM RAM PRESS OPERATOR Pulse 69 11/19/2024 11:13 AM RAM PRESS OPERATOR Temperature 36.8 C (98.2 F) 11/19/2024 11:13 AM RAM PRESS OPERATOR Respiratory Rate 16 08/13/2024 2:59 PM CDT Oxygen Saturation 97% 11/19/2024 11: 13 AM RAM PRESS OPERATOR Inhaled Oxygen Concentration - - Weight 88.8 kg (195 lb 12.8 oz) 024 11:13 AM RAM PRESS OPERATOR Height 167.6 cm (5' 6 ) 11/19/2024 11:1 3 AM RAM PRESS OPERATOR Body Mass Index 31.6 11/19/2024 11:13 AM RAM PRESS OPERATOR Plan of Treatment Upcoming Encounters Date Type Department Care Team (Late st Contact Info) Description 02/18/2025 10:30 AM CDT Office Visit [facility] - Urology [address] [place] [address] [address] [place] [address] Stefania Abdul, EWA [address] [facility] [place] [address] Health Maintenance Due Date Last Done Comments [...] to complete this topic MENINGOCOCCAL (Group B) VACC INE SHARED DECISION-MAKING Aged Out No longer eligibl e based on patient's age to complete this topic MENINGOCOCCAL GROUPS A/C/Y/W VACCINE Aged Out No longer eligible b ased on patient's age to complete this topic
--- OUTSIDE RECORDS SUMMARY | 2025-01-31 13:40 | XMS_ITS | Referral Summary ---
Author Organization [facility] Address [address] [place] [address] Care Team Providers Care Esthetician/Skin Therapist Name Role Phone Eusebio Crystal MD Primary Care Provider [phone] Encounters Date Type Department Care Team Description 12/19/2024 9:15 AM PHARMACY INFORMATICS MANAGER Office Visit [facility] Pulmonary [address] [place] [address] Jd Ariza MD PERRY (obstructive sleep apnea) (Primary Dx); Psychophysiological insomnia; Simple chronic bronchitis (HCC); Cigarette nicotine dependence in remission; Multiple pulmonary nodules; BMI 31.0-31.9,adult; Periodic limb movement 11/16/2024 Telephone [facility] [address] [place] [address] Jd Ariza MD Cpap titration results 11/11/2024 7:49 PM PHARMACY INFORMATICS MANAGER - 11/11/2024 11:59 PM PHARMACY INFORMATICS MANAGER Hospital Encounter [facility] [address] [place] [address] Other fatigue; PERRY (obstructive sleep apnea); Psychophysiological insomnia; Wheezing; Simple chronic bronchitis (HCC); BMI 31.0-31.9,adult; Cigarette nicotine dependence in remission Discharge Disposition: Discharge to home or self care 11/05/2024 9:15 AM PHARMACY INFORMATICS MANAGER - 11/05/2024 11:59 PM PHARMACY INFORMATICS MANAGER Hospital [facility] [place] [address] [place] [address] Personal history of nicotine dependence [...] total) by mouth daily Active albuterol HFA (PROVENTIL HFA,VENTOLIN HFA,PROAIR HFA) 90 mcg/actuation inhaler INHALE 2 PUFFS BY MOUTH EVERY 6 HOURS NEEDED FOR WHEEZING 6.7 each 3 5 Active albuterol HFA (Ventolin HFA) 90 mcg/actuation inhaler Inhale 2 puffs every 6 (six) hours as needed for wheezing 1 each 3 4 025 Discontinued Active Problems Problem Noted Date Diagnosed Date Multiple pulmonary nodules 12/19/2024 Periodic limb movement 12/19/2024 PERRY (obstructive sleep apnea) 09/12/2024 Psychophysiological insomnia 09/12/2024 Wheezing 09/12/2024 BMI 31.0-31.9,adult 09/12/2024 Simple chronic bronchitis 09/12/2024 Cigarette nicotine dependence in remission 09/12 Social History Tobacco Use Types Packs/Day Years Used Date Smoking Tobacco: Former Cigarettes 0.8 46.2 S tarted: 2013 Sex and Gender Information Value Date Recorded Sex Assigned at Not on file Legal Sex Male 11:51 AM CDT Gender Identity Not on file Sexual Orientation Not on file Last Filed Vital Signs Vital Sign Reading Time Taken Comments Blood Pressure 122/62 12/19/2024 10:18 AM PHARMACY INFORMATICS MANAGER Pulse 72 12/19/2024 10:18 AM PHARMACY INFORMATICS MANAGER Temperature 36.9 C (98.4 F) 12/19/2024 10:18 AM PHARMACY INFORMATICS MANAGER Respiratory Rate 18 12/19/2024 10:18 AM PHARMACY INFORMATICS MANAGER Oxygen Saturation 96% 12/19/2024 10:18 AM PHARMACY INFORMATICS MANAGER Inhaled Oxygen Concentration - - Weight 88 kg (194 lb) 12/19/2024 10:18 AM PHARMACY INFORMATICS MANAGER Height 167.6 cm (5' 6 ) 12/19/2024 10:18 AM PHARMACY INFORMATICS MANAGER Body Mass Index 31.31 12/19/2024 10:18 AM PHARMACY INFORMATICS MANAGER Plan of Treatment Not on file Procedures Procedure Name Priority Date/Time Associated Diagnosis Comments PSG (SIMPLE) Routine 11/11/2024 7:49 PM PHARMACY INFORMATICS MANAGER Other fatigue PERRY (obstructive sleep apnea) Psychophysiologica l insomnia Wheezing Simple chronic bronchitis (HCC) BMI 31.0-31.9,adult Cigarette nicotine dependence in remission CT LUNG CANCER SCREENING Schedule Routine, Read Routine (OP Routine) 11/05/2024 9:38 AM PHARMACY INFORMATICS MANAGER Personal history of nicotine dependence from Last 3 Months Results * PSG (11/11/2024 7:49 PM PHARMACY INFORMATICS MANAGER) Jd Ariza MD SLEEP CENTER ORDERABLES Fin al Result Performing Organization Address City/State/[facility] Co de Phone Number [facility] SLEEP MEDICINE [address] [place] [address] * CT Lung Cancer Screening (11/05/2024 9:38 AM PHARMACY INFORMATICS MANAGER) Anatomical Region Laterality Modality Chest N/A Computed Tomogra phy 11/09/2024 10:4 6 AM PHARMACY INFORMATICS MANAGER Narrative 11/09/2024 10:54 AM PHARMACY INFORMATICS MANAGER EXAM DESCRIPTION: CT LUNG CANCER SCREENING REASON [...] Zhen Rojo M.D. AG T: Report ID: [id number] Reading Location: [place] [address] Procedure Note Zhen Rojo MD - 11/09/2024 [...] Zhen Rojo M.D. AG T: Report ID: [id number] Reading Location: [place] [address] Jd Ariza MD IMG CT PROCEDURES Final Res ult from Last 3 Months Insurance MEDICARE [employer] Care Teams Esthetician/Skin Therapist Relationship Specialty Start Date End Date Eusebio Crystal MD [address] [place] [phone] PCP - General Emergency Medicine 09/05/24
--- OUTSIDE RECORDS SUMMARY | 2025-01-31 13:40 | XMS_ITS | Clinical Summary ---
Author Organization [facility] Office Center Address [address] [place] [address] Care Team Providers Care Whip Sawyer Name Role Phone Eusebio Crystal MD Primary Care Provider [phone] Allergies No known active allergies Medications tamsulosin [...] Department Care Team Description 12/19/2024 9:15 AM MILL SET UP Office Visit [facility] Pulmonary [address] [place] [phone] Jd Ariza MD PERRY (obstructive sleep apnea) (Primary Dx); Psychophysiological insomnia; Simple chronic bronchitis (HCC); Cigarette nicotine dependence in remission; Multiple pulmonary nodules; BMI 31.0-31.9,adult; Periodic limb movement 11/16/2024 Telephone [facility] [address] [place] [address] Jd Ariza MD Cpap titration results 11/11/2024 7:49 PM MILL SET UP - 11/11/2024 11:59 PM MILL SET UP Hospital Encounter [facility] [address], [place] [id number] Other fatigue; PERRY (obstructive sleep apnea); Psychophysiological insomnia; Wheezing; Simple chronic bronchitis (HCC); BMI 31.0-31.9,adult; Cigarette nicotine dependence in remission Discharge Disposition: Discharge to home or self care 11/05/2024 9:15 AM MILL SET UP - 11/05/2024 11:59 PM MILL SET UP [facility] [address] [place] [address] Personal history of nicotine dependence [...] Comments Blood Pressure 122/62 12/19/2024 10:18 AM MILL SET UP Pulse 72 12/19/2024 10:18 AM MILL SET UP Temperature 36.9 C (98.4 F) 12/19/2024 10:18 AM MILL SET UP Respiratory Rate 18 12/19/2024 10:18 AM MILL SET UP Oxygen Saturation 96% 12/19/2024 10:18 AM MILL SET UP Inhaled Oxygen Concentration - - Weight 88 kg (194 lb) 12/19/2024 10:18 AM MILL SET UP Height 167.6 cm (5' 6 ) 12/19/2024 10:18 AM MILL SET UP Body Mass Index 31.31 12/19/2024 10:18 AM MILL SET UP Plan of Treatment Health Maintenance Due Date Last Done Comments Colon Cancer Screening-Colonoscopy 1950 Depression Screening 1950 Fall Risk Assessment 1950 Hepatitis C Screening 1950 DTaP/Tdap/Td Vaccine (1 - Tdap) 1961 Hepatitis B Screening 1968 Pneumococcal vaccine 65+ (1 of 1 - PCV) 2000 Zoster Vaccine (1 of 2) 2000 Abdominal Aortic Aneurysm (AAA) Screen 2015 Well Visit 65+ 2015 Influenza Vaccine (#1) 2024 Lung Cancer Screening 05/04/2025 11/05/2024 Procedures Procedure Name Priority Date/Time Associated Diagnosis Comments PSG (SIMPLE) Routine 11/11/2024 7:49 PM MILL SET UP Other fatigue PERRY (obstructive sleep apnea) Psychophysiologica l insomnia Wheezing Simple chronic bronchitis (HCC) BMI 31.0-31.9,adult Cigarette nicotine dependence in remission CT LUNG CANCER SCREENING Schedule Routine, Read Routine (OP Routine) 11/05/2024 9:38 AM MILL SET UP Personal history of nicotine dependence from Last 3 Months Results * PSG (11/11/2024 7:49 PM MILL SET UP) us Jd Ariza MD SLEEP CENTER ORDERABLES Fin al Result [facility] [address] [place] [address], [facility] * CT Lung Cancer Screening (11/05/2024 9:38 AM MILL SET UP) Anatomical Region Laterality Modality Chest N/A Computed Tomogra phy 11/09/2024 10:4 6 AM MILL SET UP Narrative 11/09/2024 10:54 AM MILL SET UP EXAM DESCRIPTION: CT LUNG CANCER SCREENING REASON [...] Zhen Rojo M.D. AG T: Report ID: [id number] Reading Location: [place] [address] Procedure Note Zhen Rojo MD - 11/09/2024 [...] Zhen Rojo M.D. AG T: Report ID: [id number] Reading Location: [place] [address] Jd Ariza MD IMG CT PROCEDURES Final Res ult from Last 3 Months Insurance [employer] Care Teams Whip Sawyer Relationship Specialty Start Date End Date Eusebio Crystal MD [address] [place] [id number] PCP - General Emergency Medicine 09/05/24
[2025-01-31 16:45] LABS: Iron 93 ug/dL (49-181)
[2025-01-31 16:58] LABS: Percent Iron Saturation 27 % (20-50)
== END 2025-01-31 11:56 | disposition home or self-care (01) ==
LOC: ANHLAB 11:57
PROVIDERS: PCP Emergency Medicine; Visit Provider Internal Medicine Cardiovascular Disease
DX: R53.83 Other fatigue (principal); I10 Essential (primary) hypertension; E78.5 Hyperlipidemia, unspecified; E11.9 Type 2 diabetes mellitus without complications
CPT/HCPCS: 36415; 82728; 83540; 83550; 85025

== ENCOUNTER 2025-05-20 11:07 | Outpatient (CLI) | payer MEDICARE, MEDICAID, SELFPAY ==
--- NOTE | ~2025-05-20 | XR_ITS ---
EXAMINATION: XR chest 2V Exam Date/Time: 05/20/2025 11:30 CDT HISTORY: COUGH X 2 WEEKS;WHEEZING Comparison: 07/04/2021. RESULT: Lines, tubes, and devices: None. Lungs and pleura: Clear. Cardiomediastinal silhouette: Stable. Other: No acute osseous or upper abdominal finding. IMPRESSION: No acute cardiopulmonary process. Reviewed, dictated and finalized at location K.
--- OUTSIDE RECORDS SUMMARY | 2025-05-20 11:42 | XMS_ITS | Referral Summary ---
Author Organization [facility] Address [address] [place] [address] Care Team Providers Care Form Coverer Name Role Phone Eusebio Crystal MD Primary Care Provider [phone] Encounters Date Type Department Care Team Description 05/20/2025 8:00 AM CDT Hospital Encounter [facility] [address] [place] [address] PERRY (obstructive sleep apnea); Psychophysiological insomnia; Simple chronic bronchitis (HCC); Cigarette nicotine dependence in remission; Multiple pulmonary nodules; BMI 31.0-31.9,adult; Periodic limb movement from Last 3 Months Allergies No known [...] HOURS NEEDED FOR WHEEZING 6.7 each 3 01/08/2025 Active Active Problems Problem Noted Date Diagnosed Date Multiple pulmonary nodules 12/19/2024 Periodic limb movement 12/19/2024 PERRY (obstructive sleep apnea) 09/12/2024 Psychophysiological insomnia 09/12/2024 Wheezing 09/12/2024 BMI 31.0-31.9,adult 09/12/2024 Simple chronic bronchitis 09/12/2024 Cigarette nicotine dependence in remission 09/12 Social History Tobacco Use Types Packs/Day Years Used Date Smoking Tobacco: Former Cigarettes 0.8 46.5 S tarted: 2013 Sex and Gender Information Value Date Recorded Sex Assigned at Not on file Legal Sex Male 11:51 AM CDT Gender Identity Not on file Sexual Orientation Not on file Last Filed Vital Signs Vital Sign Reading Time Taken Comments Blood Pressure 122/62 12/19/2024 10:18 AM STAFF NURSE ANESTHETIST Pulse 72 12/19/2024 10:18 AM STAFF NURSE ANESTHETIST Temperature 36.9 C (98.4 F) 12/19/2024 10:18 AM STAFF NURSE ANESTHETIST Respiratory Rate 18 12/19/2024 10:18 AM STAFF NURSE ANESTHETIST Oxygen Saturation 96% 12/19/2024 10:18 AM STAFF NURSE ANESTHETIST Inhaled Oxygen Concentration - - Weight 88 kg (194 lb 0.1 oz) 05/20/2025 8:27 AM CDT Height 167.6 cm (5' 5.98) 05/20/2025 8:27 AM CD T Body Mass Index 31.33 05/20/2025 8:27 AM CDT Plan of Treatment Not on file Procedures Procedure Name Priority Date/Time Associated Diagnosis Comments CT LUNG CANCER SCREENING Schedule Routine, Read Routine (OP Routine) 11/05/2024 9:38 AM STAFF NURSE ANESTHETIST Personal history of nicotine dependence from Last 3 Months or Most Recently Relevant to Health Maintenance Results * CT Lung Cancer Screening (11/05/2024 9:38 AM STAFF NURSE ANESTHETIST) Anatomical Region Laterality Modality Chest N/A Computed Tomogra phy 11/09/2024 10:4 6 AM STAFF NURSE ANESTHETIST Narrative 11/09/2024 10:54 AM STAFF NURSE ANESTHETIST EXAM DESCRIPTION: CT LUNG CANCER SCREENING REASON [...] Zhen Rojo M.D. AG T: Report ID: [id number] Reading Location: [place] [address] Procedure Note Zhen Rojo MD - 11/09/2024 [...] by Zhen Rojo M.D. T: Report ID: [id number] Reading Location: [place] [address] Jd Ariza MD IM CT PROCEDURES Final Res ult from Last 3 Months or Most Recently Relevant to Health Maintenance Insurance [facility] MEDICARE ADVANTAGE Care Teams Form Coverer Relationship Specialty Start Date End Date Eusebio Crystal MD [address] [place] [phone] PCP - General Emergency Medicine 09/05/24
--- OUTSIDE RECORDS SUMMARY | 2025-05-20 11:42 | XMS_ITS | Clinical Summary ---
Author Organization [facility] Office Center Address [address] [place] [address] Care Team Providers Care Instructional Writer Name Role Phone Eusebio Crystal MD Primary Care Provider [phone] Allergies No known active allergies Medications tamsulosin [...] Description 05/20/2025 8:00 AM CDT Hospital Encounter [facility] [address] [place] [address] PERRY (obstructive sleep apnea); Psychophysiological insomnia; Simple chronic bronchitis (HCC); Cigarette nicotine dependence in remission; Multiple pulmonary nodules; BMI 31.0-31.9,adult; Periodic limb movement from Last 3 Months Social History Tobacco [...] Comments Blood Pressure 122/62 12/19/2024 10:18 AM CLERK RATING Pulse 72 12/19/2024 10:18 AM CLERK RATING Temperature 36.9 C (98.4 F) 12/19/2024 10:18 AM CLERK RATING Respiratory Rate 18 12/19/2024 10:18 AM CLERK RATING Oxygen Saturation 96% 12/19/2024 10:18 AM CLERK RATING Inhaled Oxygen Concentration - - Weight 88 kg (194 lb 0.1 oz) 05/20/2025 8:27 AM CDT Height 167.6 cm (5' 5.98) 05/20/2025 8:27 AM CD T Body Mass Index 31.33 05/20/2025 8:27 AM CDT Plan of Treatment Health Maintenance Due Date Last Done Comments Colon Cancer Screening-Colonoscopy 1950 Depression Screening 1950 Fall Risk Assessment 1950 Hepatitis C Screening 1950 DTaP/Tdap/Td Vaccine (1 - Tdap) 1961 Hepatitis B Screening 1968 Pneumococcal vaccine 65+ (1 of 2 - PCV) 1969 Zoster Vaccine (1 of 2) 2000 Abdominal Aortic Aneurysm (AAA) Screen 2015 Well Visit 65+ 2015 Lung Cancer Screening 05/04/2025 11/05/2024 Influenza Vaccine (Season Ended) 2025 Procedures Procedure Name Priority Date/Time Associated Diagnosis Comments CT LUNG CANCER SCREENING Schedule Routine, Read Routine (OP Routine) 11/05/2024 9:38 AM CLERK RATING Personal history of nicotine dependence from Last 3 Months or Most Recently Relevant to Health Maintenance Results * CT Lung Cancer Screening (11/05/2024 9:38 AM CLERK RATING) Anatomical Region Laterality Modality Chest N/A Computed Tomogra phy 11/09/2024 10:4 6 AM CLERK RATING Narrative 11/09/2024 10:54 AM CLERK RATING EXAM DESCRIPTION: CT LUNG CANCER SCREENING REASON [...] Zhen Rojo M.D. AG T: Report ID: [id number] Reading Location: [id number] Procedure Note Zhen Rojo MD - 11/09/2024 [...] Zhen Rojo M.D. AG T: Report ID: [id number] Reading Location: [id number] us Jd Ariza MD IMG CT PROCEDURES Final Res ult from Last 3 Months or Most Recently Relevant to Health Maintenance Insurance [employer] MEDICARE ADVANTAGE [facility] MEDICARE Address: [facility] [address] [place] [address] Care Teams Instructional Writer Relationship Specialty Start Date End Date Eusebio Crystal MD [address] [place] [id number] PCP - General Emergency Medicine 09/05/24
--- OUTSIDE RECORDS SUMMARY | 2025-05-20 11:42 | XMS_ITS | Data Portability ---
Author Organization [facility] Address [address] [place] [address] Assessment No assessment recorded. Plan of Treatment Reminders Order Date Submit Date Provider Last Modified By Organization Details Last Modified Time Details Appointments None recorded. Lab None recorded. Referral audiologis t referral [address] [facility], [address] [place], [address], 11:26:59 Procedures None recorded. Surgeries None recorded. Imaging None recorded. Medication Orders None recorded. Patient TargetsNo targets recorded. Patient InstructionsNo instructions recorded. Reason for Referral Site Supervising Technical Operator Referral for Sen sorineural hearing loss of bilateral ears Referring Physician: Francisco Hernandez, Otolaryngology, Encounter Date: 12/20/2023 Procedures Surgical History Date Name Laterality Status Provider Name and Address Organization Details Recorded Time Cerumen removal without microscope completed Paul Veloz MA [facility] 12/20/2023 10:32:53 Imaging Results None recorded. [...] Address Organization Details Last Updated DateTime 4 37956.8 5 g 31.9 kg/m2 167.64 cm 98.6 [degF] 64 /min 142 mm[Hg] 67 mm[Hg] Paul Veloz [facility] 4 10:34:52 Social History Question [...] SNOMED-CT Code Diagnosis ICD10 Code Diagnosis Note [id number] Francisco Hernandez MD [facility] [address] [place] [address] 12/20/2023 10:23:17 12/20/2023 14:19:36 Impacted cerumen 32451449 H61.20 Sensorineu ral hearing loss of bilateral ears 367029091 H90.3 follow-up after audiogram Health Concerns Section Related Observation LastModified by Organization Detai ls LastModified Time None Recorded Concern Status LastModified by Organization Details LastModified Time None Recorded Advance Directives Directive N: Payers Insurance Date Sequence Insurance Name Policy Number Policy Yip Covered Member ID Yip Member ID Guarantor Name 12/20/2023 1 [facility] (MEDICARE REPLACEMENT/A DVANTAGE - HMO) [id number] Tanya Morley [id number] Tanya Morley Notes Date Note Type Note Provider Name and Address Organization Details Recorded Time 12/20/2023 text/html patient complaining of decreased hearing. His family saying he has having a hard time hearing. He is never worked in a noisy environment. He does not have any complaints of pain or drainage. Francisco Hernandez MD [address] [place], [address], [facility] 12/20/2023 10:43:09
--- OUTSIDE RECORDS SUMMARY | 2025-05-20 11:42 | XMS_ITS | Encounter Summary ---
Author Organization [facility] Healthcare Address [address] [place] [address] Care Team Providers Care Transportation Security Officer Name Role Phone Eusebio Crystal MD Primary Care Provider [phone] Reason for Referral * MRI/CAT/PET Scan (Routine) - Closed Specialty Diagnoses / Procedures Referred By Johnson mauricio Referred To Contact Radiology Diagnoses PERRY (obstructive sleep apnea) Psychophysiological insomnia Simple chronic bronchitis (HCC) Cigarette nicotine dependence in remission Multiple pulmonary nodules BMI 31.0-31.9,adult Periodic limb movement Procedures CT Chest WO Contrast F/U Lung Screen Protocol CT Chest WO Contrast Jd Ariza MD [facility] [address] [place] [address] Phone: tel: fax: [address] [phone] Referral ID Status Reason Start Date Expiration Date Visits Re quested Visits Authorized [id number] Closed 12/19/2024 01/18/2026 1 1 Reason for Visit * MRI/CAT/PET Scan (Routine) - Closed Specialty Diagnoses / Procedures Referred By Contac t Referred To Contact Radiology Diagnoses PERRY (obstructive sleep apnea) Psychophysiological insomnia Simple chronic bronchitis (HCC) Cigarette nicotine dependence in remission Multiple pulmonary nodules BMI 31.0-31.9,adult Periodic limb movement Procedures CT Chest WO Contrast F/U Lung Screen Protocol CT Chest WO Contrast Jd Ariza MD [address] [facility] [address] [place] [address] Phone: tel: fax: [address] [phone] Referral ID Status Reason Start Date Expiration Date Visits Re quested Visits Authorized [id number] Closed 12/19/2024 01/18/2026 1 1 Encounter Details Date Type Department Care Team (Latest Contact Info) Description 05/20/2025 8:00 AM CDT Hospital Encounter [address] [address] PERRY (obstructive sleep apnea); Psychophysiological insomnia; Simple chronic bronchitis (HCC); Cigarette nicotine dependence in remission; Multiple pulmonary nodules; BMI 31.0-31.9,adult; Periodic limb movement Social History Tobacco Use Types Packs/Day Years Used Date Smoking Tobacco: Former Cigarettes 0.8 46.5 S tarted: 2013 Sex and Gender Information Value Date Recorded Sex Assigned at Not on file Legal Sex Male 11:51 AM CDT Gender Identity Not on file Sexual Orientation Not on file documented as of this encounter Last Filed Vital Signs Vital Sign Reading Time Taken Comments Blood Pressure - - Pulse - - Temperature - - Respiratory Rate - - Oxygen Saturation - - Inhaled Oxygen Concentration - - Weight 88 kg (194 lb 0.1 oz) 05/20/2025 8:27 AM CDT Height 167.6 cm (5' 5.98) 05/20/2025 8:27 AM CD T Body Mass Index 31.33 05/20/2025 8:27 AM CDT documented in this encounter Plan of Treatment Pending Results Name Type Priority Associated Diagnoses Date /Time CT Chest WO Contrast F/U Lung Screen Protocol Imaging Schedule Routine, Read Routine (OP Routine) PERRY (obstructive sleep apnea) Psychophysiological insomnia Simple chronic bronchitis (HCC) Cigarette nicotine dependence in remission Multiple pulmonary nodules BMI 31.0-31.9,adult Periodic limb movement 05/20/2025 8:26 AM CDT Scheduled Orders Name Type Priority Associated Diagnoses Orde r Schedule CT Chest WO Contrast F/U Lung Screen Protocol Imaging Schedule Routine, Read Routine (OP Routine) PERRY (obstructive sleep apnea) Psychophysiological insomnia Simple chronic bronchitis (HCC) Cigarette nicotine dependence in remission Multiple pulmonary nodules BMI 31.0-31.9,adult Periodic limb movement Once for 1 Occurrences starting 05/20/2025 until 05/20/2025 documented as of this encounter Visit Diagnoses Diagnosis PERRY (obstructive sleep apnea) Obstructive sleep apnea (adult) (pediatric) Psychophysiological insomnia Persistent disorder of initiating or maintaining sleep Simple chronic bronchitis (HCC) Simple chronic bronchitis Cigarette nicotine dependence in remission Multiple pulmonary nodules Other diseases of lung, not elsewhere classified BMI 31.0-31.9,adult Periodic limb movement Periodic limb movement disorder documented in this encounter Care Teams Transportation Security Officer Relationship Specialty Start Date End Date Eusebio Crystal MD [address] [place] [address] PCP - General Emergency Medicine 09/05/24 documented as of this encounter
--- OUTSIDE RECORDS SUMMARY | 2025-05-20 11:42 | XMS_ITS | Clinical Summary ---
Author Organization [facility] Tawnya osuna [facility] Address [address] [place] [address] Care Team Providers Care Rn Homecare Name Role Phone Eusebio rCystal MD Primary Care Provider [phone] Allergies No known active allergies Medications aspirin [...] Encounters Date Type Department Care Team Description 05/07/2025 External Device Data ST[facility] ABSTRACTION Provider, Abstract 04/11/2025 External Device Data ST[facility] ABSTRACTION Provider, Abstract 04/11/2025 External Device Data ST[facility] ABSTRACTION Provider, Abstract 04/10/2025 External Device Data [facility] ABSTRACTION Provider, Abstract 04/10/2025 External Device Data [facility] ABSTRACTION Provider, Abstract 04/09/2025 External Device Data [facility] ABSTRACTION Provider, Abstract 03/05/2025 External Device Data [facility] ABSTRACTION Provider, Abstract 02/26/2025 External Device Data ST[facility] ABSTRACTION Provider, Abstract [...] on file 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 Gender Identity Not on file Sexual Orientation [...] A M CDT Height 167.6 cm (5' 6) 02/02/2024 11:00 AM CDT Body Mass Index 31.34 02/02/2024 11:00 AM CDT Plan of Treatment Upcoming Encounters Date Type Department Care Team (Late st Contact Info) Description 06/24/2025 3:30 PM CDT Office Visit [facility] Oncology and Hematology - [place] [place] [phone] Mendez Amezcua MD [address] [facility] [address] [place] [address] Health Maintenance Due Date Last [...] (AAA) Screening 2015 INFLUENZA VACCINE (#1) 2024 RSV VACCINE (60+ or ) (1 - 1-dose 75+ series) 2025 [place] [address] [facility] [id number] [place] Care Teams Rn Homecare Relationship Specialty Start Date End Date Eusebio Crystal MD [address] [place] [phone] PCP - General Family Practice 02/02/24
--- OUTSIDE RECORDS SUMMARY | 2025-05-20 11:42 | XMS_ITS | Clinical Summary ---
Author Organization [facility] Address [address] [place] [address] Care Team Providers Care Power House Control Room Operator Name Role Phone Unavailable Primary Care Provider Unavailabl e Source Comments [facility],non-owned Affiliates and Associated Physician Practices is amultiple site organization consisting of ambulatory clinics and hospital sitesin [place], [place], [place] and [place]. This disclosure is being madepursuant to the Care Everywhere program and may not contain all information available regarding this patient. Last updated 18.[facility] Allergies No known active allergies Medications * Be aware that medications may not be up to date on this document. Alwaysverify current medications with the patient. metFORMIN (Glucophage) 500 MG tablet Take 1 [...] at Not on file Legal Sex Male 8:49 AM CDT Gender Identity Not on file Sexual Orientation Not on file Last Filed Vital Signs Vital Sign Reading Time Taken Comments Blood Pressure 137/74 11/19/2024 11:13 AM PHONE MANAGER Pulse 69 11/19/2024 11:13 AM PHONE MANAGER Temperature 36.8 C (98.2 F) 11/19/2024 11:13 AM PHONE MANAGER Respiratory Rate 16 08/13/2024 2:59 PM CDT Oxygen Saturation 97% 11/19/2024 11: 13 AM PHONE MANAGER Inhaled Oxygen Concentration - - Weight 88.8 kg (195 lb 12.8 oz) 024 11:13 AM PHONE MANAGER Height 167.6 cm (5' 6) 11/19/2024 11:1 3 AM PHONE MANAGER Body Mass Index 31.6 11/19/2024 11:13 AM PHONE MANAGER Plan of Treatment Health Maintenance Due Date [...] VACCINE (1 of 2) 2000 COVID-19 VACCINE ( - 2023-2 5 season) 2024 DEPRESSION SCREENING 11/21/2024 MEDICARE AWV CALENDAR YEAR 2024 Respiratory Syncytial Virus (RSV) Vaccine Pt: or over 60 yrs (1 - 1-dose 75+ series) 2025 INFLUENZA VACCINE (Season Ended) 2025 HEPATITIS B VACCINE Aged Out No [...] on patient's age to complete this topic Insurance [employer] MANAGED MEDICARE ADV MEDICAID - [place]
== END 2025-05-20 11:08 | disposition home or self-care (01) ==
PROVIDERS: PCP Emergency Medicine; Visit Provider Emergency Medicine
DX: R05.9 Cough, unspecified (principal); R06.2 Wheezing
CPT/HCPCS: 71046

== ENCOUNTER 2025-06-24 13:02 | Outpatient (CLI) | payer MEDICARE, MEDICAID, SELFPAY ==
--- OUTSIDE RECORDS SUMMARY | 2025-06-24 13:10 | XMS_ITS | Clinical Summary ---
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 Gender Identity Not on file Sexual Orientation [...] Care Team (Late st Contact Info) Description 06/26/2025 1:15 PM CDT Office Visit [facility] Oncology and Hematology - [place] [address] [place] [address] Mendez Amezcua MD [address] [facility] [address] [place] [address] Health Maintenance Due Date Last [...] 2000 Abdominal Aortic Aneurysm (AAA) Screening 2015 [place]) Prev entative Visit/Annual Wellness Visit 11/21/2024 RSV VACCINE (60+ or ) (1 - 1-dose 75+ series) 2025 INFLUENZA VACCINE (#1) 2025 [place] [address] [facility] DUAL COMPLETE PPO DSNP [facility] [id number] [place] Care Teams Composing Room Supervisor Relationship Specialty Start Date End Date Eusebio Crystal MD [address] [place] [phone] PCP - General Family Practice 02/02/24
--- OUTSIDE RECORDS SUMMARY | 2025-06-24 13:10 | XMS_ITS | Clinical Summary ---
Author Organization [facility] Address [address] [place] [address] Care Team Providers Care Training And Development Specialist Name Role Phone Unavailable Primary Care Provider Unavailabl e Source Comments [facility] [employer],non-owned Affiliates and Associated Physician Practices is amultiple site organization consisting of ambulatory clinics and hospital sitesin [place], [place], [place] and [place]. This disclosure is being madepursuant to the Care Everywhere program and may not contain all information available regarding this patient. Last updated 18.[facility] [employer] Allergies No known active allergies Medications * [...] Comments Blood Pressure 137/74 11/19/2024 11:13 AM PACKER OPERATOR AUTOMATIC Pulse 69 11/19/2024 11:13 AM PACKER OPERATOR AUTOMATIC Temperature 36.8 C (98.2 F) 11/19/2024 11:13 AM PACKER OPERATOR AUTOMATIC Respiratory Rate 16 08/13/2024 2:59 PM CDT Oxygen Saturation 97% 11/19/2024 11: 13 AM PACKER OPERATOR AUTOMATIC Inhaled Oxygen Concentration - - Weight 88.8 kg (195 lb 12.8 oz) 024 11:13 AM PACKER OPERATOR AUTOMATIC Height 167.6 cm (5' 6) 11/19/2024 11:1 3 AM PACKER OPERATOR AUTOMATIC Body Mass Index 31.6 11/19/2024 11:13 AM PACKER OPERATOR AUTOMATIC Plan of Treatment Health Maintenance Due Date [...] 75+ series) 2025 INFLUENZA VACCINE (#1) 2025 HEPATITIS B VACCINE Aged Out No [...] patient's age to complete this topic Insurance [facility] MANAGED MEDICARE ADV [place]ID [place]
--- OUTSIDE RECORDS SUMMARY | 2025-06-24 13:10 | XMS_ITS | Referral Summary ---
Author Organization [facility] Office Center Address [address] [place] [address] Care Team Providers Care Sales And Training Specialist Name Role Phone Eusebio Crystal MD Primary Care Provider [phone] Encounters Date Type Department Care Team Description 05/20/2025 8:00 AM CDT - 05/20/2025 11:59 PM CDT Hospital Encounter [facility] [address] [place] [address] PERRY (obstructive sleep apnea); Psychophysiological insomnia; Simple chronic bronchitis (HCC); Cigarette nicotine dependence in remission; Multiple pulmonary nodules; BMI 31.0-31.9,adult; Periodic limb movement Discharge Disposition: Discharge to home or self [...] Used Date Smoking Tobacco: Former Cigarettes 0.8 46.6 S tarted: 2013 Sex and Gender Information Value Date Recorded Sex Assigned at Not on file Legal Sex Male 11:51 AM CDT Gender Identity Not on file Sexual Orientation Not on file Last Filed Vital Signs Vital Sign Reading Time Taken Comments Blood Pressure 122/62 12/19/2024 10:18 AM FIXTURE FABRICATOR REPAIRER Pulse 72 12/19/2024 10:18 AM FIXTURE FABRICATOR REPAIRER Temperature 36.9 C (98.4 F) 12/19/2024 10:18 AM FIXTURE FABRICATOR REPAIRER Respiratory Rate 18 12/19/2024 10:18 AM FIXTURE FABRICATOR REPAIRER Oxygen Saturation 96% 12/19/2024 10:18 AM FIXTURE FABRICATOR REPAIRER Inhaled Oxygen Concentration - - Weight 88 kg (194 lb 0.1 oz) 05/20/2025 8:27 AM CDT Height 167.6 cm (5' 5.98) 05/20/2025 8:27 AM CD T Body Mass Index 31.33 05/20/2025 8:27 AM CDT Plan of Treatment Not on file Procedures Procedure Name Priority Date/Time Associated Diagnosis Comments CT CHEST WO CONTRAST F/U LUNG SCREEN PROTOCOL Schedule Routine, Read Routine (OP Routine) 05/20/2025 8:26 AM CDT PERRY (obstructive sleep apnea) Psychophysiologica l insomnia Simple chronic bronchitis (HCC) Cigarette nicotine dependence in remission Multiple pulmonary nodules BMI 31.0-31.9,adult Periodic limb movement from Last 3 Months Results * CT Chest WO Contrast F/U Lung Screen Protocol (05/20/2025 8:26 AM CDT) Anatomical Region Laterality Modality Chest N/A Computed Tomogra phy 05/30/2025 8:27 AM CDT Narrative 05/30/2025 8:31 AM CDT EXAM DESCRIPTION: CT CHEST WO CONTRAST F/U LUNG SCREEN PROTOCOL REASON FOR STUDY: Screening CT of the [...] DOSE: CT dose index volume (CTDIvol) = 1.97 mGy COMPARISON: CT lung cancer screening 11/05/2024 FINDINGS: SMOKING RELATED LUNG DISEASE: Mild centrilobular pulmonary emphysema. LUNG NODULES: Stable nodules, including 6 mm ground-glass right upper lobe pulmonary nodule (axial image 146), 5 mm subpleural right lower lobe pulmonary nodule (219) and and 5 mm subpleural left lower lobe pulmonary nodule (axial image 279). CORONARY ARTERY CALCIFICATION: Present. OTHER: Normal heart size. No mediastinal or hilar lymph node enlargement by size criteria. No acute findings in the visualized upper abdomen given low-dose technique. No acute skeletal abnormality. IMPRESSION: 1. Stable pulmonary nodules. 2. Mild pulmonary emphysema. Lung-RADS category 2: Benign appearance or behavior. Recommendation: Low dose Screening CT of chest in 12 months. THIS IS AN ELECTRONICALLY VERIFIED FINAL REPORT 05/30/2025 8:31 AM - Electronically signed by Lavon Silva M.D. JR T: Report ID: [id number] Reading Location: [id number] Procedure Note Lavon Silva MD - 05/30/2025 EXAM DESCRIPTION: CT CHEST WO CONTRAST F/U LUNG SCREEN PROTOCOL REASON FOR STUDY: Screening CT of the [...] DOSE: CT dose index volume (CTDIvol) = 1.97 mGy COMPARISON: CT lung cancer screening 11/05/2024 FINDINGS: SMOKING RELATED LUNG DISEASE: Mild centrilobular pulmonary emphysema. LUNG NODULES: Stable nodules, including 6 mm ground-glass right upperlobe pulmonary nodule (axial image 146), 5 mm subpleural right lower lobepulmonary nodule (219) and and 5 mm subpleural left lower lobe pulmonary nodule(axial image 279). CORONARY ARTERY CALCIFICATION: Present. OTHER: Normal heart size. No mediastinal or hilar lymph nodeenlargement by size criteria. No acute findings in the visualized upper abdomen given low-dose technique. No acute skeletal abnormality. IMPRESSION: 1. Stable pulmonary nodules. 2. Mild pulmonary emphysema. Lung-RADS category 2: Benign appearance or behavior. Recommendation: Low dose Screening CT of chest in 12 months. THIS IS AN ELECTRONICALLY VERIFIED FINAL REPORT 05/30/2025 8:31 AM - Electronically signed by Lavon Silva M.D. T: Report ID: [id number] Reading Location: [place] [address] Jd Ariza MD IMG CT PROCEDURES Final Res ult from Last 3 Months Insurance [facility] MEDICARE ADVANTAGE [facility] MEDICARE Address: [address] [address] [place] [address] Care Teams Sales And Training Specialist Relationship Specialty Start Date End Date Eusebio Crystal MD [address] [place] [id number] PCP - General Emergency Medicine 09/05/24
--- OUTSIDE RECORDS SUMMARY | 2025-06-24 13:10 | XMS_ITS | Clinical Summary ---
Author Organization [facility] Office Center Address [address] [place] [address] Care Team Providers Care Licensed Nurse Practitioner Name Role Phone Eusebio Crystal MD Primary Care Provider [phone] Allergies No known active allergies Medications tamsulosin [...] 11:59 PM CDT Hospital Encounter [facility] [address] [place] [address] PERRY (obstructive sleep apnea); Psychophysiological insomnia; Simple [...] Comments Blood Pressure 122/62 12/19/2024 10:18 AM GREIGE GOODS EXAMINER Pulse 72 12/19/2024 10:18 AM GREIGE GOODS EXAMINER Temperature 36.9 C (98.4 F) 12/19/2024 10:18 AM GREIGE GOODS EXAMINER Respiratory Rate 18 12/19/2024 10:18 AM GREIGE GOODS EXAMINER Oxygen Saturation 96% 12/19/2024 10:18 AM GREIGE GOODS EXAMINER Inhaled Oxygen Concentration - - Weight 88 [...] Well Visit 65+ 2015 Influenza Vaccine (#1) 2025 Lung Cancer Screening 05/21/2026 05/20/2025, 024 Procedures Procedure Name Priority Date/Time Associated Diagnosis [...] AM - Electronically signed by Lavon Silva M.D., JR T: Report ID: [id number] Reading Location: [id number] Procedure Note Lavon Silva MD - 05/30/2025 [...] Lavon Silva M.D. JR T: Report ID: [id number] Reading Location: [id number] Jd Ariza MD IMG CT PROCEDURES Final Res ult from Last 3 Months Insurance [facility]IC[facility] Address: [facility] [id number] [place] [phone] Care Teams Licensed Nurse Practitioner Relationship Specialty Start Date End Date Eusebio Crystal MD [address] [place] [id number] PCP - General Emergency Medicine 09/05/24
[2025-06-24 13:36] LABS: Hematocrit 45.1 % (42.0-52.0); Hemoglobin 15.5 g/dL (14.0-18.0); Mean Corpuscular HGB Conc 34.4 g/dl (32-36); Mean Corpuscular Hemoglobin 30.5 pg (26-34); Mean Corpuscular Volume 88.8 fl (80-100); Platelet Count Result 257 k/mm3 (150-375); Red Blood Count 5.08 M/mm3 (4.6-6.20); White Blood Count 5.4 K/mm3 (4.5-10.0)
[2025-06-24 15:37] LABS: Iron 146 ug/dL (49-181)
[2025-06-24 16:07] LABS: Percent Iron Saturation 41 % (20-50)
[2025-06-24 16:29] LABS: Ferritin 74.00 ng/mL (11.1-264)
[2025-06-24 16:41] LABS: Vitamin B12 901.0 pg/mL (239-931)
== END 2025-06-24 13:03 | disposition home or self-care (01) ==
LOC: ANHLAB 13:03
PROVIDERS: PCP Emergency Medicine; Visit Provider Internal Medicine Hematology & Oncology
DX: D50.9 Iron deficiency anemia, unspecified (principal)
CPT/HCPCS: 36415; 82607; 82728; 82746; 83540; 83550; 85027

== ENCOUNTER 2025-10-10 15:35 | Emergency (ER) | payer MEDICARE, MEDICAID, SELFPAY ==
--- NOTE | ~2025-10-10 | CT_ITS ---
CT abdomen pelvis w con Clinical History: groin pain, prostate issues, burning pain . Comparison: CT abdomen pelvis 07/04/2021 Technique: Axial images lung bases to symphysis pubis 100 mL Omnipaque 350 Coronal, sagittal reformats CT images acquired with automatic exposure control for dose reduction DLP: 706 mGy-cm Findings: Lung bases: Clear. Visualized heart and pericardium: Coronary artery calcification. Liver: Steatosis. Gallbladder: Unremarkable. Spleen: Unremarkable. Pancreas: Unremarkable. Adrenal glands: Unremarkable. Kidneys: Right kidney- No hydronephrosis. No renal stones. Left kidney- No hydronephrosis. No renal stones. Cortical cyst. Distal esophagus/stomach: Unremarkable. Small bowel loops: Normal caliber and wall thickness. Colon: Diverticula. Normal caliber and wall thickness. Normal RLQ appendix. Nodes: No enlarged nodes. Peritoneum: No ascites. No free air. Urinary bladder: Unremarkable. Prostate: Unremarkable. Bones: No acute bony abnormality. Soft tissues: Unremarkable. Aorta: No aneurysm or dissection. IVC: Unremarkable. Main portal vein/SMV/splenic vein: Patent. IMPRESSION: 1. No acute findings. Reviewed, dictated and finalized at location R. TRUCK OPERATOR IMPRESSION: 1. No acute findings.
[2025-10-10 16:54] VITALS: BP 133/100; PULSE 67; RESP 16; TEMP 36.7; O2SAT 96
--- OUTSIDE RECORDS SUMMARY | 2025-10-10 18:10 | XMS_ITS | Clinical Summary ---
Author Organization [facility] Address [address] [place] [address] Care Team Providers Care Outside Sales Representative Insurance Name Role Phone Eusebio Crystal MD Primary Care Provider [phone] Allergies No known active allergies Medications aspirin [...] (325 mg) by mouth daily. 90 Tablet 2 06/26/2025 Active cyanocobalamin 1,000 mcg Tablet Take 1 Tablet (1,000 mcg) by mouth daily. 90 Tablet 08/14/2025 Active Active Problems Problem Noted Date Diagnosed Date Iron deficiency anemia 02/02/2024 Encounters Date Type Department Care Team Description 08/14/2025 Refill [facility] Oncology and Hematology - [place] [address] [place] [address] Mendez Amezcua MD 07/23/2025 External Device Data [facility] ABSTRACTION Provider, Abstract [...] 35 Q uit: 02/01/2015 Smokeless Tobacco: Never Alcohol Use Standard Drinks/Week Comments Not Currently 0 (1 standard drink = 0.6 oz pur e alcohol) Sex and Gender Information Value Date Recorded Sex Assigned at Not on file 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 Gender Identity Not on file Sexual Orientation Not on file Last Filed Vital Signs Vital Sign Reading Time Taken Comments Blood Pressure 140/89 06/26/2025 1:14 PM CDT Pulse 81 06/26/2025 1:12 PM CDT Temperature 36.8 C (98.2 F) 06/26/2025 1:12 PM CDT Respiratory Rate 15 06/26/2025 1:12 PM CDT Oxygen Saturation 96% 06/26/2025 1:12 PM CDT Inhaled Oxygen Concentration - - Weight 84.8 kg (187 lb) 06/26/2025 1:12 PM CDT Height 167.6 cm (5' 6) 02/02/2024 11:00 AM CDT Body Mass Index 30.18 02/02/2024 11:00 AM CDT Plan of Treatment Health Maintenance [...] 2000 Abdominal Aortic Aneurysm (AAA) Screening 2015 RSV VACCINE (60+ or ) (1 - 1-dose 75+ series) 2025 INFLUENZA VACCINE (#1) 2025 Insurance [facility] DUAL COMPLETE PPO [facility] [id number] MEDICAID [place] Care Teams Outside Sales Representative Insurance Relationship Specialty Start Date End Date Eusebio Crystal MD [address] [place] [phone] PCP - General Family Practice 02/02/24
--- OUTSIDE RECORDS SUMMARY | 2025-10-10 18:10 | XMS_ITS | Clinical Summary ---
Author Organization [facility] Address [address] [place] [address] Care Team Providers Care Short Filler Bunch Machine Operator Name Role Phone Eusebio Crystal MD Primary Care Provider [phone] Allergies No known active allergies Medications tamsulosin [...] Encounters Date Type Department Care Team Description 09/04/2025 9:45 AM CDT Office Visit [facility] Pulmonary [address] [address] Jd Ariza MD PERRY (obstructive sleep apnea) (Primary Dx); Psychophysiological insomnia; BMI 31.0-31.9,adult; Simple chronic bronchitis (HCC); Cigarette nicotine dependence in remission; Multiple pulmonary nodules; Periodic limb movement; Personal history of nicotine dependence from Last 3 Months Social History Tobacco Use Types Packs/Day Years Used Date Smoking Tobacco: Former Cigarettes 0.8 46.9 S tarted: 2013 Sex and Gender Information Value Date Recorded Sex Assigned at Not on file Legal Sex Male 11:51 AM CDT Gender Identity Not on file Sexual Orientation Not on file Last Filed Vital Signs Vital Sign Reading Time Taken Comments Blood Pressure 120/78 09/04/2025 9:45 AM CDT Pulse 89 09/04/2025 9:45 AM CDT Temperature 36.9 C (98.5 F) 09/04/2025 9:45 AM CDT Respiratory Rate 17 09/04/2025 9:45 AM CDT Oxygen Saturation 98% 09/04/2025 9:45 AM CDT Inhaled Oxygen Concentration - - Weight 85.7 kg (189 lb) 09/04/2025 9:45 AM CDT Height 165.1 cm (5' 5) 09/04/2025 9:45 AM CDT Body Mass Index 31.45 09/04/2025 9:45 AM CDT Plan of Treatment Health Maintenance [...] Periodic limb movement from Last 3 Months or Most Recently Relevant to Health Maintenance Results * CT Chest WO Contrast F/U [...] Lavon Silva M.D., JR T: Report ID: [id number] Reading Location: [id number] Procedure Note Lavon Silva MD - 05/30/2025 [...] Lavon Silva M.D., JR T: Report ID: [id number] Reading Location: [id number] Jd Ariza MD IMG CT PROCEDURES Final Res ult from Last 3 Months or Most Recently Relevant to Health Maintenance Insurance [facility] [address] Care Teams Short Filler Bunch Machine Operator Relationship Specialty Start Date End Date Eusebio Crystal MD [address] [address] PCP - General Emergency Medicine 09/05/24
--- OUTSIDE RECORDS SUMMARY | 2025-10-10 18:10 | XMS_ITS | Clinical Summary ---
Author Organization [facility] Address [address] [place] [address] Care Team Providers Care Sole Splitter Name Role Phone Unavailable Primary Care Provider Unavailabl e Source Comments [facility] [employer],non-owned Affiliates and Associated Physician Practices is amultiple site organization consisting of ambulatory clinics and hospital sitesin [place], [place], [place] and [place]. This disclosure is being madepursuant to the Care Everywhere program and may not contain all information available regarding this patient. Last updated 18.[facility] [employer] Allergies No known active allergies Medications * [...] Comments Blood Pressure 137/74 11/19/2024 11:13 AM TACTICAL INTELLIGENCE OFFICER Pulse 69 11/19/2024 11:13 AM TACTICAL INTELLIGENCE OFFICER Temperature 36.8 C (98.2 F) 11/19/2024 11:13 AM TACTICAL INTELLIGENCE OFFICER Respiratory Rate 16 08/13/2024 2:59 PM CDT Oxygen Saturation 97% 11/19/2024 11: 13 AM TACTICAL INTELLIGENCE OFFICER Inhaled Oxygen Concentration - - Weight 88.8 kg (195 lb 12.8 oz) 024 11:13 AM TACTICAL INTELLIGENCE OFFICER Height 167.6 cm (5' 6) 11/19/2024 11:1 3 AM TACTICAL INTELLIGENCE OFFICER Body Mass Index 31.6 11/19/2024 11:13 AM TACTICAL INTELLIGENCE OFFICER Plan of Treatment Health Maintenance Due Date [...] 2000 ZOSTER VACCINE (1 of 2) 2000 DEPRESSION SCREENING 11/21/2024 MEDICARE AWV CALENDAR YEAR 2024 Respiratory Syncytial Virus (RSV) Vaccine Pt: or over 60 yrs (1 - 1-dose 75+ series) 2025 COVID-19 VACCINE ( - 2024-2 6 season) 2025 INFLUENZA VACCINE (#1) 2025 HEPATITIS B [...] patient's age to complete this topic Insurance [facility] MANAGED MEDICARE ADV MEDICAID - [place]
[2025-10-10 21:25] VITALS: BP 151/64; PULSE 64; TEMP 36.3; O2SAT 97
[2025-10-10 23:32] VITALS: BP 144/71; PULSE 61; RESP 17; O2SAT 96
[2025-10-10 23:46] LABS: Add Urine Microscopic? NO; Appearance Urine Clear (Clear); Glucose Urine UA Negative (Negative); Hematocrit 42.5 % (42.0-52.0); Hemoglobin 14.6 g/dL (14.0-18.0); Immature Granulocyte Percent A 0.3 % (0-0.5); Leukocyte Esterase Ur Negative LEU/UL (Negative); Lymphocytes Absolute Auto 2.13 K/mm3 (0.9-3.2); Mean Corpuscular HGB Conc 34.4 g/dl (32-36); Mean Corpuscular Hemoglobin 30.3 pg (26-34); Mean Corpuscular Volume 88.2 fl (80-100); Nitrate Urine Negative (Negative); Nucleated Red Blood Cells Absolute Auto 0.000 K/mm3 (0.0-0.012); Nucleated Red Blood Cells Perc 0.0 % (0.0-0.2); Platelet Count Result 225 k/mm3 (150-375); Red Blood Count 4.82 M/mm3 (4.6-6.20); Specific Grav Ur 1.022 (1.001-1.035); White Blood Count 7.1 K/mm3 (4.5-10.0)
--- NOTE | 2025-10-10 23:56 | ED.ABDPAIN ---
HPI - Abdominal Pain General Chief Complaint: Abdominal Pain Stated Complaint: abdominal pain Time Seen by Provider: 10/10/25 23:35 History of Present Illness HPI narrative: 75-year-old male with history of hypertension hyperlipidemia presenting to the emergency department with burning urination and dull pain in his groin region for last 2 days. States that he has had some prostate issues recently and going to the bathroom every few hours. No traumatic injuries. Previous repaired hernia otherwise no other abdominal surgeries. Denies any testicular swelling or testicular pain. Notices some penile pain occasionally intermittent as well with the burning sensation. No wounds or sores no fever or chills. Was otherwise in his normal state of health. Related Data Home Medications ?Medication ?Instructions ?Recorded ?Confirmed ?Last Taken ?Type aspirin 325 mg tablet,delayed 325 mg PO DAILY 01/27/24 02/10/24 Unknown History release dutasteride 0.5 mg capsule 0.5 mg PO DAILY 01/27/24 02/10/24 Unknown History ergocalciferol (vitamin D2) 1,250 1,250 mcg PO WEEKLY 01/27/24 02/10/24 Unknown History mcg (50,000 unit) capsule fluticasone fur. 100 mcg-umeclid 1 inh inhalation DAILY 01/27/24 02/10/24 Unknown History 62.5 mcg-vilant 25 mcg inhalat.powder (Trelegy Ellipta) metformin 500 mg tablet 500 mg PO BID 01/27/24 02/10/24 Unknown History metoprolol succinate 25 mg 25 mg PO DAILY 01/27/24 02/10/24 Unknown History tablet,extended release 24 hr rosuvastatin 20 mg tablet 20 mg PO DAILY 01/27/24 02/10/24 Unknown History tamsulosin 0.4 mg capsule 0.4 mg PO DAILY 01/27/24 02/10/24 Unknown History Allergies Allergy/AdvReac Type Severity Reaction Status Date / Time No Known Allergies Allergy Verified 01/03/25 14:51 Review of Systems Review of Systems: As reviewed above in HPI PMFSH Family History Family History Father Family history of premature coronary heart disease Patient's father is Social History Social History Smoking packs per day: 1 Smoking cigarettes per day: 20.0 Years smoked: 40 Smoking pack-years: 40.00 Smoking status: Former smoker Tobacco type: cigarettes Smoking end date: 11/21/14 Alcohol intake: never Spiritual care concerns: No Exam Narrative: GENERAL: [Well-appearing, well-nourished, and in no acute distress.] HEAD: [Normocephalic, atraumatic.] EYES: [PERRLA and EOMI.] ENT: Nares clear, no rhinorrhea or epistaxis. Mucous membranes moist. NECK: Supple. CHEST: [Clear to auscultation. No respiratory distress.] HEART: [Regular rate and rhythm]. No murmur heard. [Normal peripheral pulses.] ABDOMEN: [Soft, nondistended], [nontender], [No rigidity or guarding] : Normal penis, no scrotal erythema or masses. No hernias appreciated. No pain reproducible palpation of the inguinal canals or suprapubic region. EXTREMITIES: Normal range of motion. [No edema.] SKIN: Warm, dry, no rash. NEURO: [No focal deficits]. Alert and oriented [x3.] PSYCH: [Normal mood and affect.] Course Vital Signs Vital signs: Vital Signs Temperature 36.7 C 10/10/25 16:54 Pulse Rate 67 10/10/25 16:54 Respiratory Rate 16 10/10/25 16:54 Blood Pressure 133/100 H 10/10/25 16:54 Pulse Oximetry 96 10/10/25 16:54 Oxygen Delivery Room Air 10/10/25 16:54 Temperature 36.3 C L 10/10/25 21:25 Pulse Rate 76 10/11/25 03:05 Respiratory Rate 14 10/11/25 03:05 Blood Pressure 139/76 10/11/25 03:05 Pulse Oximetry 100 10/11/25 03:05 Oxygen Delivery Room Air 10/10/25 16:54 MDM - Abdominal Pain MDM Narrative Medical decision making narrative: 75-year-old male with history of hypertension hyperlipidemia presenting to the emergency department with burning urination and dull pain in his groin region for last 2 days. States that he has had some prostate issues recently and going to the bathroom every few hours. No traumatic injuries. Previous repaired hernia otherwise no other abdominal surgeries. Denies any testicular swelling or testicular pain. Notices some penile pain occasionally intermittent as well with the burning sensation. No wounds or sores no fever or chills. Was otherwise in his normal state of health. Patient has an unremarkable physical examination with normal exam. Vital signs are stable he is afebrile. Symptoms consistent with potential urinary tract infection, prostatitis, cystitis, low suspicion intra-abdominal hernia or internal hernia. CT scan ordered with contrast basic laboratory studies urinalysis ordered. Patient is not any pain at this time. Laboratory studies are reassuring and normal. No leukocytosis or anemia. Normal platelet count. Urinalysis unremarkable for any infection. CT scan shows fat containing bilateral inguinal hernias likely the source of patient's symptoms. Otherwise unremarkable CT with no evidence of diverticulitis or acute intra-abdominal process otherwise. No signs of obstruction. Patient's pain is under control and he can follow up with General surgery in given a referral. Given return precautions and safely discharged. Medical Records Attestation: I reviewed the patient's medical records. Lab Data Attestation: I reviewed the patient's lab results. 10/10/25 23:35 10/10/25 23:35 Labs: Lab Results 10/10/25 Range/Units 23:35 WBC 7.1 (4.5-10.0) K/mm3 RBC 4.82 (4.6-6.20) M/mm3 Hgb 14.6 (14.0-18.0) g/dL Hct 42.5 (42.0-52.0) % MCV 88.2 (80-100) fl MCH 30.3 (26-34) pg MCHC 34.4 (32-36) g/dl RDW 12.8 (11.5-14.5) % Plt Count 225 (150-375) k/mm3 MPV 9.1 (7.4-10.4) fl Immature Gran % (Auto) 0.3 (0-0.5) % Neut % (Auto) 57.7 (45.5-73.1) % Lymph % (Auto) 30.1 (18.3-44.2) % [place] % (Auto) 9.2 H (2.6-8.5) % Eos % (Auto) 2.3 (0-4.4) % Baso % (Auto) 0.4 (0.2-1.2) % Lymph # (Auto) 2.13 (0.9-3.2) K/mm3 [place] # (Auto) 0.7 H (0.1-0.6) K/mm3 Eos # (Auto) 0.2 (0-0.3) K/mm3 Baso # (Auto) 0.0 (0.0-0.1) K/mm3 Abs Immat Gran (auto) 0.02 (0.00-0.031) K/mm3 Absolute Neuts (auto) 4.1 (1.3-6.7) K/mm3 Absolute Nucleated RBC 0.000 (0.0-0.012) K/mm3 Nucleated RBC % 0.0 (0.0-0.2) % Sodium 136 L (137-145) mmol/L Potassium 4.0 (3.4-5.0) mmol/L Chloride 105 (98-107) mmol/L Carbon Dioxide 23 (22-30) mmol/L Anion Gap 8 (4-12) mmol/L BUN 28 H (9-20) mg/dL Creatinine 1.00 (0.7-1.3) mg/dL Estim Creat Clear Calc 58 ml/min Estimated GFR > 60 (59 - ) Glucose 94 (65-110) mg/dL Calcium 8.6 (8.4-10.2) mg/dL Total Bilirubin 0.6 (0.2-1.3) mg/dL AST 38 (17-59) U/L ALT 26 (6-50) U/L Alkaline Phosphatase 52 (38-126) U/L Total Protein 7.4 (6.3-8.2) g/dL Albumin 4.2 (3.5-5.1) g/dL Lipase 53 (23-300) U/L Urine Color Yellow (Yellow) Urine Appearance Clear (Clear) Urine pH 5.0 (5.0-9.0) Ur Specific [place] 1.022 (1.001-1.035) Urine Protein Negative (Negative) mg/dL Urine Glucose (UA) Negative (Negative) mg/dL Urine Ketones Negative (Negative) mg/dL Ur Blood (Man) Negative (Negative) Urine Nitrate Negative (Negative) Urine Bilirubin Negative (Negative) Urine Urobilinogen 0.2 (<2.0) mg/dL Leukocyte Esterase Rfl Negative (Negative) ORLY/UL Imaging Data Attestation: I personally reviewed and interpreted this imaging study as follows: My impression: Bilateral fat containing inguinal hernias Discharge Plan Discharge Clinical Impression: Bilateral groin pain, Bilateral inguinal hernia Patient Disposition: Home Condition: Stable Instructions: Antibiotic Form, Inguinal Hernia (ED), Inguinal Hernia Repair (DC) Additional Instructions: CT scan shows no acute emergencies. You do have some fat containing inguinal hernias on both sides which is likely the source of your pelvic and groin discomfort. No signs of any obstruction. Follow-up with the general surgeon we have provided. Take Tylenol and ibuprofen every 6-8 hours for pain control. Return with any difficulties with worsening pain, inability to tolerate oral intake, constipation for multiple days, fevers or any other issues. talk to your regular doctor about your prostate issues as well as you might benefit from some medications to help you urinate more easily. Patient Language: Maltese Prescriptions: No Action metformin 500 mg tablet 500 mg PO BID aspirin 325 mg tablet,delayed release (DR/EC) 325 mg PO DAILY tamsulosin 0.4 mg capsule 0.4 mg PO DAILY metoprolol succinate 25 mg tablet extended release 24 hr 25 mg PO DAILY ergocalciferol (vitamin D2) 1,250 mcg (50,000 unit) capsule 1,250 mcg PO WEEKLY dutasteride 0.5 mg capsule 0.5 mg PO DAILY rosuvastatin 20 mg tablet 20 mg PO DAILY Trelegy Ellipta 100-62.5-25 mcg blister with device 1 inh INHALATION DAILY mupirocin 2 % ointment 1 applic topical BID 7 Days Qty: 22 0RF clindamycin HCl 300 mg capsule 300 mg PO Q8H 10 Days Qty: 30 0RF pantoprazole [Protonix] 40 mg tablet,delayed release (DR/EC) 40 mg PO QAM 28 Days Qty: 28 0RF Follow-up/Referrals: Eusebio Crystal MD [Primary Care Provider, Family Practice] Azael Hammonds MD [Physician, General Surgery] - 1 Week Referral Note: Bilateral inguinal hernias Time of Disposition: 02:45
[2025-10-10 23:57] LABS: Alanine Aminotransferase 26 U/L (6-50); Anion Gap 8 mmol/L (4-12); Aspartate Amino Transferase 38 U/L (17-59); Bilirubin,Total 0.6 mg/dL (0.2-1.3); Blood Urea Nitrogen 28 mg/dL (9-20); Calcium 8.6 mg/dL (8.4-10.2); Carbon Dioxide 23 mmol/L (22-30); Chloride 105 mmol/L (98-107); Estimated CRCL calculation 58 ml/min; Estimated Glomerular Filt Rate > 60; Glucose 94 mg/dL (65-110); Potassium 4.0 mmol/L (3.4-5.0); Sodium 136 mmol/L (137-145); Total Protein 7.4 g/dL (6.3-8.2)
[2025-10-10 23:58] LABS: Albumin Level 4.2 g/dL (3.5-5.1); Alkaline Phosphatase 52 U/L (38-126); Lipase 53 U/L (23-300)
[2025-10-11] VITALS (9 sets, daily range): BP systolic 135–152; BP diastolic 75–85; PULSE 55–76; RESP 13–18; O2SAT 94–100
--- OUTSIDE RECORDS SUMMARY | 2025-10-11 00:05 | XMS_ITS | Clinical Summary ---
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
--- OUTSIDE RECORDS SUMMARY | 2025-10-11 00:05 | XMS_ITS | Clinical Summary ---
Author Organization [facility] Office Center Address [address] [place] [address] Care Team Providers Care Roller Man Name Role Phone Eusebio Crystal MD Primary Care Provider [phone] Allergies No known active allergies Medications tamsulosin [...] Description 09/04/2025 9:45 AM CDT Office Visit [facility] Pul[facility] [address] [address] Jd Ariza MD PERRY (obstructive [...] Lavon Silva M.D., JR T: Report ID: [id number] Reading Location: [id number] Procedure Note Lavon Silva MD - 05/30/2025 [...] Lavon Silva M.D., JR T: Report ID: [id number] Reading Location: [id number] Jd Ariza MD IMG CT PROCEDURES Final Res ult from Last 3 Months or Most Recently Relevant to Health Maintenance Insurance [facility] [address] Care Teams Roller Man Relationship Specialty Start Date End Date Eusebio Crystal MD [address] [address] PCP - General Emergency Medicine 09/05/24
== END 2025-10-11 03:10 | disposition home or self-care (01) ==
PROVIDERS: Emergency Provider Student in an Organized Health Care Education/Training Program; PCP Emergency Medicine
DX: K40.20 Bilateral inguinal hernia, without obstruction or gangrene, not specified as recurrent (principal); R10.30 Lower abdominal pain, unspecified; I10 Essential (primary) hypertension; E78.5 Hyperlipidemia, unspecified; Z87.891 Personal history of nicotine dependence
CPT/HCPCS: 36415; 74177; 80053; 81003; 83690; 85025; 99284; Q9967